=== PATIENT | male | born 1960 | race Caucasian/White ===

== ENCOUNTER 2020-08-06 15:04 | Emergency (ER) | payer SELFPAY ==
[~2020-08-06] VITALS: Ht 175.3 cm; Wt 102.1 kg
[2020-08-06 15:59] LABS: BASOPHILS ABSOLUTE AUTO 0.05 K/mm3 (0.00-0.23); BASOPHILS PERCENT AUTO 1 % (0-2); EOSINOPHILS ABSOLUTE AUTO 0.11 K/mm3 (0.00-0.68); EOSINOPHILS PERCENT AUTO 2 % (0-6); Hematocrit 46.7 % (37.0-53.0); Hemoglobin 15.5 g/dL (13.5-17.5); IMMATURE GRAN ABSOLUTE AUTO 0.01 K/mm3 (0.00-0.10); IMMATURE GRAN PERCENT AUTO 0 % (0-1); LYMPHOCYTES PERCENT AUTO 25 % (21-46); MONOCYTES ABSOLUTE AUTO 0.88 K/mm3 (0.16-1.47); MONOCYTES PERCENT AUTO 15 % (4-13); Mean Corpuscular HGB 29.5 pg (26.0-34.0); Mean Corpuscular HGB Conc 33.2 g/dL (31.5-36.5); Mean Corpuscular Volume 89 fL (80-100); NEUTROPHILS ABSOLUTE AUTO 3.26 K/mm3 (1.96-9.15); NEUTROPHILS PERCENT AUTO 57 % (41-73); Platelet Count 225 K/mm3 (150-400); RDW Coefficient Variation 12.7 % (11.7-14.2); RDW Standard Deviation 41.4 fL (35.1-46.3); Red Blood Cell Count 5.26 M/mm3 (4.30-5.90); White Blood Cell Count 5.71 K/mm3 (4.00-11.30)
[2020-08-06 16:27] LABS: Alanine Aminotransfer (ALT/SGP 55 U/L (12-78); Albumin, Blood 3.8 g/dL (3.4-5.0); Albumin/Globulin Ratio 1.1 (0.8-1.8); Alk Phos 76 U/L (50-136); Anion Gap 6 mmol/L (6-16); Aspartate Aminotrans (AST/SGOT 31 U/L (12-37); Blood Urea Nitrogen 12 mg/dL (8-24); Bun/Creatinine Ratio 16.4 (12.0-20.0); CO2, Blood 25 mmol/L (21-32); Calcium, Blood 9.3 mg/dL (8.5-10.1); Chloride, Blood 107 mmol/L (98-108); Creatinine, Blood 0.73 mg/dL (0.60-1.20); Globulin, Blood 3.6 g/dL (2.2-4.0); Glomerular Filtration Rate >60 (60-); Glucose, Blood 173 mg/dL (70-99); Potassium, Blood 4.1 mmol/L (3.5-5.5); Sodium, Blood 138 mmol/L (136-145); Total Protein, Blood 7.4 g/dL (6.4-8.2); Troponin I <0.015 ng/mL (0.000-0.040)
[2020-08-06] MEDS ORDERED: Percocet 5-3251 EACH PO (18:25)
== END 2020-08-06 18:42 | disposition home or self-care (01) ==
LOC: ER 15:04
PROVIDERS: Physician Assistant
DX: M54.2 Cervicalgia (principal); R20.2 Paresthesia of skin; Z87.39 Personal history of other diseases of the musculoskeletal system and connective tissue; Z88.2 Allergy status to sulfonamides; Z88.8 Allergy status to other drugs, medicaments and biological substances; Z88.5 Allergy status to narcotic agent
CPT/HCPCS: 80053; 83880; 84484; 85025; 93005; 93010; 96374; 99283-25; A9270; J1885

== ENCOUNTER → 2020-12-19 | Outpatient (CLI) | payer OTHER ==
[~2020-12-19] MED LIST: Percocet 5-3251 EACH PO
[2020-12-19 12:17] LABS: Appearance, Urine Clear (Clear); Bilirubin, Urine Neg (Neg); Blood, Urine Neg (Neg); Color, Urine Yellow (P-Yellow); Glucose Qualitative, Urine Neg (Neg); Ketones, Urine Neg (Neg); Leukocyte Esterase, Urine Neg (Neg); Nitrite, Urine Neg (Neg); Protein, Urine 1+ (Neg); Urobilinogen, Urine NORM (Normal)
== END | disposition home or self-care (01) ==
LOC: LAB SHORT 11:35 → LAB 11:35
PROVIDERS: Internal Medicine Rheumatology
DX: R80.9 Proteinuria, unspecified (principal)
CPT/HCPCS: 87086

== ENCOUNTER → 2021-05-31 | Outpatient (CLI) | payer OTHER ==
[2021-05-31 14:55] LABS: Creatinine Urine 52.4 mg/dL (27.00-270.00); Protein, Urine Quantitative 19.1 mg/dL (0.0-11.9)
== END | disposition home or self-care (01) ==
LOC: LAB SHORT 12:23 → LAB 12:23 → LAB FUT 05-15 16:35 → EDSTATUS 05-15 16:35
PROVIDERS: Nurse Practitioner Family
DX: M45.9 Ankylosing spondylitis of unspecified sites in spine (principal); E11.9 Type 2 diabetes mellitus without complications; F64.0 Transsexualism; R80.9 Proteinuria, unspecified; Z79.890 Hormone replacement therapy
CPT/HCPCS: 81050; 82570; 84156

== ENCOUNTER → 2021-06-28 | Outpatient (CLI) | payer OTHER ==
[~2021-06-28] MED LIST changes: +ALBU90OI INH; +AMLODIPINE BESY10 MG PO; +Amaryl2 MG PO; +BECL25NI; +Betamethasone D30 ML; +DULOXETINE HCL60 M1 PO; +IMITREX50 M2 PO; +Inderal60 MG PO; +LOSA50 PO; +METF500 PO; +MINOCYCLINE HC100 M2 PO; +MONT10T PO; +OXYB5 PO; +PRAVASTATIN SOD20 MG PO; +PROBIOTIC1 EA13 PO; +ROPI.25 PO; +VITAMIN D310 MC4 PO
== END | disposition home or self-care (01) ==
LOC: LAB SHORT 15:06
DX: A49.9 Bacterial infection, unspecified (principal)
CPT/HCPCS: 87070; 87205

== ENCOUNTER 2022-02-14 18:09 | Observation (INO) | payer OTHER ==
[~2022-02-14] VITALS: Ht 177.8 cm; Wt 90.6 kg
[2022-02-14 18:35] LABS: BASOPHILS ABSOLUTE AUTO 0.03 K/mm3 (0.00-0.23); BASOPHILS PERCENT AUTO 1 % (0-2); EOSINOPHILS PERCENT AUTO 0 % (0-6); Hematocrit 38.8 % (37.0-53.0); Hemoglobin 13.4 g/dL (13.5-17.5); IMMATURE GRAN ABSOLUTE AUTO 0.01 K/mm3 (0.00-0.10); IMMATURE GRAN PERCENT AUTO 0 % (0-1); LYMPHOCYTES ABSOLUTE AUTO 1.14 K/mm3 (0.84-5.20); LYMPHOCYTES PERCENT AUTO 46 % (21-46); MONOCYTES ABSOLUTE AUTO 0.46 K/mm3 (0.16-1.47); MONOCYTES PERCENT AUTO 19 % (4-13); Mean Corpuscular HGB 29.6 pg (26.0-34.0); Mean Corpuscular HGB Conc 34.5 g/dL (31.5-36.5); Mean Corpuscular Volume 86 fL (80-100); Mean Platelet Volume 10.3 fL (9.1-12.4); NEUTROPHILS ABSOLUTE AUTO 0.85 K/mm3 (1.96-9.15); NEUTROPHILS PERCENT AUTO 34 % (41-73); Platelet Count 169 K/mm3 (150-400); RDW Coefficient Variation 13.3 % (11.7-14.2); RDW Standard Deviation 41.3 fL (35.1-46.3); Red Blood Cell Count 4.52 M/mm3 (4.30-5.90); White Blood Cell Count 2.49 K/mm3 (4.00-11.30)
[2022-02-14 19:11] LABS: Albumin, Blood 3.5 g/dL (3.4-5.0); Albumin/Globulin Ratio 1.1 (0.8-1.8); Bilirubin, Total 0.5 mg/dL (0.1-1.0); Bun/Creatinine Ratio 20.6 (12.0-20.0); Calcium, Blood 7.9 mg/dL (8.5-10.1); Creatinine, Blood 0.63 mg/dL (0.60-1.20); Globulin, Blood 3.3 g/dL (2.2-4.0); Potassium, Blood 3.1 mmol/L (3.5-5.5); Thyroid Stimulating Hormone 4.9 uIU/mL (0.360-4.800); Total Protein, Blood 6.8 g/dL (6.4-8.2)
[2022-02-14] MEDS ORDERED: TESTOSTERONE75 G1 TD (20:05)
[2022-02-14 20:23] LABS: Source, Urine Foley catheter
[2022-02-14 20:36] LABS: Bilirubin, Urine Neg (Neg); Blood, Urine Neg (Neg); Glucose Qualitative, Urine Neg (Neg); Ketones, Urine 3+ (Neg); Leukocyte Esterase, Urine Neg (Neg); Nitrite, Urine Neg (Neg); Protein, Urine 1+ (Neg); Specific Gravity, Urine 1.005 (1.003-1.022); Urobilinogen, Urine NORM (Normal); pH, Urine 6.5 (5.0-8.0)
[2022-02-14 21:04] LABS: Appearance, Urine Clear (Clear); Color, Urine Pale Yellow (P-Yellow)
[2022-02-14 22:33] LABS: U Amphetamine Screen Not Detected; U Barbituate Screen Not Detected; U Benzodiazapine Screen Not Detected; U Buprenorphine Screen Not Detected; U Cannabinoids Screen Not Detected; U Cocaine Screen Not Detected; U Methadone Screen Not Detected; U Methamphetamine Screen Not Detected; U Opiates Screen Not Detected; U Oxycodone Screen Not Detected; U Phencyclidine Screen Not Detected; U Propoxyphene Screen Not Detected
[2022-02-14 23:05] LABS: SARS-Cov-2 (COVID-19) PCR, MMC POSITIVE (NEGATIVE)
[2022-02-14] MEDS ORDERED: METTREX2.5 PO (23:16)
[2022-02-14] MEDS ORDERED: LORA.5 PO (23:17)
[2022-02-14] MEDS ORDERED: OMEP20ER PO (23:18)
[2022-02-14] MEDS ORDERED: FOLI1 PO (23:18)
[2022-02-14] MEDS ORDERED: HYDPAM50 PO (23:19)
[2022-02-14] MEDS ORDERED: [UNRECOGNIZED DRUG - OTHER] (23:22)
[2022-02-14] MEDS ORDERED: MAGNESIUM OXID500 MG PO (23:23)
[2022-02-14] MEDS ORDERED: ELDERBERRY PO (23:25)
[2022-02-14] MEDS ORDERED: ZINC PO (23:25)
[2022-02-14] MEDS ORDERED: ASCORBIC ACID PO (23:25)
[2022-02-14] MEDS ORDERED: CALCIUM MAGNES1 EAC1 PO (23:26)
[2022-02-15 06:27] LABS: BASOPHILS ABSOLUTE AUTO 0.01 K/mm3 (0.00-0.23); BASOPHILS PERCENT AUTO 0 % (0-2); EOSINOPHILS PERCENT AUTO 0 % (0-6); Hematocrit 38.2 % (37.0-53.0); Hemoglobin 12.9 g/dL (13.5-17.5); IMMATURE GRAN ABSOLUTE AUTO 0.01 K/mm3 (0.00-0.10); IMMATURE GRAN PERCENT AUTO 0 % (0-1); LYMPHOCYTES ABSOLUTE AUTO 1.32 K/mm3 (0.84-5.20); LYMPHOCYTES PERCENT AUTO 35 % (21-46); MONOCYTES ABSOLUTE AUTO 0.46 K/mm3 (0.16-1.47); MONOCYTES PERCENT AUTO 12 % (4-13); Mean Corpuscular HGB 29.6 pg (26.0-34.0); Mean Corpuscular HGB Conc 33.8 g/dL (31.5-36.5); Mean Corpuscular Volume 88 fL (80-100); Mean Platelet Volume 10.4 fL (9.1-12.4); NEUTROPHILS ABSOLUTE AUTO 1.98 K/mm3 (1.96-9.15); NEUTROPHILS PERCENT AUTO 52 % (41-73); Platelet Count 172 K/mm3 (150-400); RDW Coefficient Variation 13.4 % (11.7-14.2); Red Blood Cell Count 4.36 M/mm3 (4.30-5.90); White Blood Cell Count 3.78 K/mm3 (4.00-11.30)
--- NOTE | 2022-02-15 06:38 | NUR ---
ADMITTED PT FROM ED @ 2220. PT ORIENTED TO UNIT, ROOM, AND CALL LIGHT. VITALS OBTAINED AND TELEMETRY MONITORING SET UP. MED REQ COMPLETED. PT ON RA, VSS - CARDIZEM GTT TIRATED OFF OVERNIGHT AFTER CONVERSION TO SR. NO COMPLAINTS OF PAIN. PT REPORTS RESTLESS LEGS. SPOKE W. DR. KNIGHT AND OK TO GIVE REQUIP AM DOSE EARLY. PT REPORTED RELIEF. WILL CONTINUE TO MONITOR AND PASS ON TO DAY RN
[2022-02-15 06:49] LABS: Albumin/Globulin Ratio 0.9 (0.8-1.8); Bilirubin, Total 0.4 mg/dL (0.1-1.0); Bun/Creatinine Ratio 14.4 (12.0-20.0); Calcium, Blood 7.5 mg/dL (8.5-10.1); Creatinine, Blood 0.69 mg/dL (0.60-1.20); Globulin, Blood 3.2 g/dL (2.2-4.0); Potassium, Blood 3.5 mmol/L (3.5-5.5); Total Protein, Blood 6.2 g/dL (6.4-8.2)
--- NOTE | 2022-02-15 13:32 | NUR ---
pt arrived to 341 via wheelchair with his belongings. a/ox3, pleasant and coopertive with care, only complaint is a bit of lightheadedness when standing, lungs are very dim t/o, resp even and unlabored, no cough noted, but reports occ productive cough of yellow phlem, on r/a, hrr, no edema noted, ppp+2, cap refill <3sec, vs stable, afebrile, iv site is clear and patent, btx4, abd flat soft nontender, voids with out diff, skin c/w/d, macarol ann, patel, oriented to room layout and call system, call light in reach. instructed to call for assist to get oob.
--- NOTE | 2022-02-15 19:22 | NUR ---
pt states he's feeling better, no acute changes, watching tv. call light in reach.
--- NOTE | 2022-02-16 04:45 | NUR ---
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 PT IS FULL CODE. HE IS COVID POSITIVE. PT IS A 1PA WITH FWW BUT AGREED TO USE THE BSC DURING THE NIGHT DUE TO INABILITY TO HOLD HIS URINE. PT IS SATURATING WELL ON RA. HE DID HAVE COMPLAINTS OF "FEELING LIKE I'M ON A BOAT WHEN I WALK AROUND" THAT RESOLVED WITH ROPINOROLE AND SLEEP THROUGHOUT THE NIGHT. HE IS MORE ENERGETIC THIS MORNING, SAYING THAT HE SHOULD BE UP AND WALKING AROUND, PACING IN THE ROOM. PT IS CONCERNED ABOUT HIS ROOMMATES AND IS REQUESTING HELP FINDING A NEW PLACE TO STAY.
--- NOTE | 2022-02-16 16:53 | NUR ---
SHIFT SUMMARY PATIENT IS ALERT AND ORIENTED, PLEASANT AND COOPERATIVE WITH CARE. PATIENT HAD MECLIZINE ORDERED TODAY. NO EVENTS ON TELE. PATIENT WORKED WITH PHYSICAL THERAPY TODAY. PATIENT MAY NEED TO FOLLOW UP WITH VESTIBULAR THERAPY PER MELY FROM PHYSICAL THERAPY. THE PATIENT HAS VOICED NEEDS FOR MORE ASSISTANCE WITH OUT OF HOME ACTIVITIES. PATIENT HAS BEEN UP TO THE BEDSIDE COMMODE. NO ACUTE CHANGES THIS SHIFT. CALL LIGHT WITHIN REACH. BED IN LOWEST POSITION
--- NOTE | 2022-02-17 05:24 | NUR ---
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 PT IS FULL CODE. HE IS COVID POSITIVE. PT SLEPT WELL THROUGHOUT THE SHIFT AFTER TAKING ROPINEROLE. NO COMPLAINTS OF SHORTNESS OF BREATH. NO PAIN. ALERT AND ORIENTED X4. PLEASANT AND COOPERATIVE. PT IS INDEPENDENT TO BSC. NO DIZZINESS.
[2022-02-17] MEDS ORDERED: MECL12.5 PO (12:29)
[2022-02-17] MEDS ORDERED: METO25 PO (12:30)
[2022-02-17] MEDS ORDERED: XARELTO20 MG PO (12:31)
--- NOTE | 2022-02-17 14:31 | NUR ---
RN NOTE/DISCHARGE MR ALEJANDRA IS ALERT AND ORIENTATED X 4. DENIES ANY C/O PAIN TODAY. NO SOB ON ROOM AIR. UP TO BATHROOM AND SHOWER WITH 1 PERSON ASSIST, THEN UP TO BATHROOM INDEPENDENTLY. PIV REMOVED. TELEMETRY REMOVED. GIVEN WRITTEN AND VERBAL DISCHARGE INSTRUCTIONS. PT VERBALISED UNDERSTANDING OF DISCHARGE INSTRUCTIONS AND QUESTIONS ANSWERED. AWAITING RIDE HOME.
--- NOTE | 2022-02-17 16:02 | NUR ---
PT ESCORTED VIA WHEELCHAIR FOR DISCHARGE AT 1510HRS TO HIS RIDE.
== END 2022-02-17 15:15 | disposition home health service (06) ==
LOC: ER 18:09 → PCU 18:10 → ER 22:17 → PCU 22:20 → MEDS 02-15 13:01
PROVIDERS: Emergency Medicine; Student in an Organized Health Care Education/Training Program; ADMIT Internal Medicine
DX: I48.91 Unspecified atrial fibrillation (principal); U07.1 COVID-19; I10 Essential (primary) hypertension; I48.92 Unspecified atrial flutter; E11.9 Type 2 diabetes mellitus without complications; J18.9 Pneumonia, unspecified organism; J44.9 Chronic obstructive pulmonary disease, unspecified; I25.10 Atherosclerotic heart disease of native coronary artery without angina pectoris; I25.2 Old myocardial infarction; E05.90 Thyrotoxicosis, unspecified without thyrotoxic crisis or storm; I49.5 Sick sinus syndrome; Z79.01 Long term (current) use of anticoagulants; Z88.2 Allergy status to sulfonamides; Z88.5 Allergy status to narcotic agent; Z87.891 Personal history of nicotine dependence; Z88.8 Allergy status to other drugs, medicaments and biological substances; Z79.84 Long term (current) use of oral hypoglycemic drugs
CPT/HCPCS: 36415; 51702; 71045; 80053; 82947; 83036; 83605; 83880; 84145; 84439; 84443; 84484; 85025; 93005; 93010; 93306; 94760; 96365; 96375; 96376; 97110; 97112; 97116; 97162; 99285-25; A9270; J0696; J2405; J3475; J7030; U0004

== ENCOUNTER 2022-03-05 08:05 | Day surgery (SDC) | payer OTHER ==
[~2022-03-05] VITALS: Wt 93.7 kg
[~2022-03-05 08:05] MED LIST changes: +ASCORBIC ACID PO; +CALCIUM MAGNES1 EAC1 PO; +ELDERBERRY PO; +FOLI1 PO; +HYDPAM50 PO; +LORA.5 PO; +MAGNESIUM OXID500 MG PO; +MECL12.5 PO; +METO25 PO; +METTREX2.5 PO; +OMEP20ER PO; +TESTOSTERONE75 G1 TD; +WARF5 PO; +XARELTO20 MG PO; +ZINC PO; +[UNRECOGNIZED DRUG - OTHER]
[2022-03-05] MEDS ORDERED: WARF5 PO (09:13)
[2022-03-05 10:15] LABS: CHOL/HDL RATIO 4.9; Cholesterol 161 mg/dL (50-200); HDL Cholesterol 33 mg/dL (>39); LDL/HDL RATIO 2.4; Low Density Lipoprotein Chol 78 mg/dL (0-110); Triglycerides 249 mg/dL (30-160); Very Low Density Lipoprot Chol 50 mg/dL (6-32)
--- NOTE | 2022-03-05 10:56 | NUR ---
LIPID PANEL RESULTS FROM TODAY FAXED TO DR. WOOD'S OFFICE.
== END 2022-03-05 10:47 | disposition home or self-care (01) ==
LOC: ATC 08:05
PROVIDERS: Internal Medicine Rheumatology
DX: M05.9 Rheumatoid arthritis with rheumatoid factor, unspecified (principal)
CPT/HCPCS: 80061; J3262

== ENCOUNTER 2022-04-16 00:41 | Day surgery (SDC) | payer OTHER | END 2022-04-16 15:39 | disposition home or self-care (01) | LOC: ATC 00:41 | DX: M05.79 Rheumatoid arthritis with rheumatoid factor of multiple sites without organ or systems involvement (principal); Z88.5 Allergy status to narcotic agent; Z88.2 Allergy status to sulfonamides; L40.50 Arthropathic psoriasis, unspecified; E11.9 Type 2 diabetes mellitus without complications; E78.00 Pure hypercholesterolemia, unspecified; J45.909 Unspecified asthma, uncomplicated | CPT/HCPCS: 96365; J3262 ==

== ENCOUNTER → 2022-04-28 | Outpatient (CLI) | payer OTHER ==
[2022-04-28 13:05] LABS: BASOPHILS ABSOLUTE AUTO 0.08 K/mm3 (0.00-0.23); BASOPHILS PERCENT AUTO 1 % (0-2); EOSINOPHILS ABSOLUTE AUTO 0.17 K/mm3 (0.00-0.68); EOSINOPHILS PERCENT AUTO 2 % (0-6); Hematocrit 47.6 % (37.0-53.0); IMMATURE GRAN ABSOLUTE AUTO 0.06 K/mm3 (0.00-0.10); IMMATURE GRAN PERCENT AUTO 1 % (0-1); LYMPHOCYTES ABSOLUTE AUTO 1.52 K/mm3 (0.84-5.20); LYMPHOCYTES PERCENT AUTO 17 % (21-46); MONOCYTES ABSOLUTE AUTO 1.17 K/mm3 (0.16-1.47); MONOCYTES PERCENT AUTO 13 % (4-13); Mean Corpuscular HGB 30.9 pg (26.0-34.0); Mean Corpuscular HGB Conc 33.6 g/dL (31.5-36.5); Mean Corpuscular Volume 92 fL (80-100); Mean Platelet Volume 10.2 fL (9.1-12.4); NEUTROPHILS ABSOLUTE AUTO 5.74 K/mm3 (1.96-9.15); NEUTROPHILS PERCENT AUTO 66 % (41-73); Platelet Count 276 K/mm3 (150-400); RDW Coefficient Variation 15.8 % (11.7-14.2); Red Blood Cell Count 5.18 M/mm3 (4.30-5.90); White Blood Cell Count 8.74 K/mm3 (4.00-11.30)
[2022-04-28 13:13] LABS: Albumin, Blood 4.2 g/dL (3.4-5.0); Albumin/Globulin Ratio 1.3 (0.8-1.8); Bilirubin, Total 0.9 mg/dL (0.1-1.0); Bun/Creatinine Ratio 34.7 (12.0-20.0); Calcium, Blood 8.6 mg/dL (8.5-10.1); Creatinine, Blood 0.75 mg/dL (0.60-1.20); Globulin, Blood 3.3 g/dL (2.2-4.0); Potassium, Blood 4.2 mmol/L (3.5-5.5); Total Protein, Blood 7.5 g/dL (6.4-8.2)
[2022-04-28 13:54] LABS: International Normalized Ratio 1.77; Prothrombin Time Results 17.9 Sec (9.7-11.5)
== END | disposition home or self-care (01) ==
LOC: LAB 12:55 → LAB SHORT 12:55
PROVIDERS: General Practice
DX: Z79.01 Long term (current) use of anticoagulants (principal); Z51.81 Encounter for therapeutic drug level monitoring; R06.00 Dyspnea, unspecified
CPT/HCPCS: 80053; 82550; 84484; 85025; 85610

== ENCOUNTER 2022-05-28 22:13 | Emergency (ER) | payer OTHER ==
[~2022-05-28] VITALS: Ht 172.7 cm; Wt 77.1 kg
[~2022-05-28 22:13] MED LIST changes: +ACTEMRA IV
[2022-05-31] MEDS ORDERED: GUAI600T33 PO (21:59)
[2022-05-31] MEDS ORDERED: PRED20 PO (21:59)
== END 2022-05-28 22:35 | disposition home or self-care (01) ==
LOC: ER 22:13
DX: J06.9 Acute upper respiratory infection, unspecified (principal); Z79.84 Long term (current) use of oral hypoglycemic drugs; Z79.01 Long term (current) use of anticoagulants; Z79.899 Other long term (current) drug therapy
CPT/HCPCS: 99282

== ENCOUNTER 2022-06-15 02:09 | Day surgery (SDC) | payer OTHER ==
[~2022-06-15 02:09] MED LIST changes: +GUAI600T33 PO; +PRED20 PO
== END 2022-06-15 12:10 | disposition home or self-care (01) ==
LOC: ATC 02:09
DX: M05.79 Rheumatoid arthritis with rheumatoid factor of multiple sites without organ or systems involvement (principal); E11.9 Type 2 diabetes mellitus without complications; E78.00 Pure hypercholesterolemia, unspecified; J45.909 Unspecified asthma, uncomplicated; Z88.5 Allergy status to narcotic agent; Z88.2 Allergy status to sulfonamides
CPT/HCPCS: 96365; J3262

== ENCOUNTER 2022-08-03 00:14 | Day surgery (SDC) | payer OTHER | END 2022-08-03 16:37 | disposition home or self-care (01) | LOC: ATC 00:14 | DX: M05.79 Rheumatoid arthritis with rheumatoid factor of multiple sites without organ or systems involvement (principal); Z88.5 Allergy status to narcotic agent | CPT/HCPCS: 96365; J3262 ==

== ENCOUNTER 2022-08-08 17:57 | Observation (INO) | payer OTHER ==
[~2022-08-08] VITALS: Ht 177.8 cm; Wt 95.6 kg
[2022-08-08 19:06] LABS: BASOPHILS ABSOLUTE AUTO 0.03 K/mm3 (0.00-0.23); BASOPHILS PERCENT AUTO 1 % (0-2); EOSINOPHILS ABSOLUTE AUTO 0.05 K/mm3 (0.00-0.68); EOSINOPHILS PERCENT AUTO 1 % (0-6); Hematocrit 46.1 % (37.0-53.0); Hemoglobin 16.3 g/dL (13.5-17.5); IMMATURE GRAN ABSOLUTE AUTO 0.02 K/mm3 (0.00-0.10); IMMATURE GRAN PERCENT AUTO 0 % (0-1); LYMPHOCYTES ABSOLUTE AUTO 1.26 K/mm3 (0.84-5.20); LYMPHOCYTES PERCENT AUTO 19 % (21-46); MONOCYTES ABSOLUTE AUTO 0.64 K/mm3 (0.16-1.47); MONOCYTES PERCENT AUTO 10 % (4-13); Mean Corpuscular HGB 31.5 pg (26.0-34.0); Mean Corpuscular HGB Conc 35.4 g/dL (31.5-36.5); Mean Corpuscular Volume 89 fL (80-100); Mean Platelet Volume 9.9 fL (9.1-12.4); NEUTROPHILS PERCENT AUTO 69 % (41-73); Platelet Count 284 K/mm3 (150-400); RDW Coefficient Variation 13.7 % (11.7-14.2); RDW Standard Deviation 44.7 fL (35.1-46.3); Red Blood Cell Count 5.18 M/mm3 (4.30-5.90)
[2022-08-08 19:13] LABS: International Normalized Ratio 2.09; Prothrombin Time Results 20.9 Sec (9.7-11.5)
[2022-08-08 19:31] LABS: Magnesium, Blood 1.8 mg/dL (1.6-2.4); Thyroid Stimulating Hormone 2.99 uIU/mL (0.360-4.800)
[2022-08-08 19:32] LABS: Albumin, Blood 3.9 g/dL (3.4-5.0); Albumin/Globulin Ratio 1.2 (0.8-1.8); Bun/Creatinine Ratio 24.5 (12.0-20.0); Calcium, Blood 9.3 mg/dL (8.5-10.1); Creatinine, Blood 0.65 mg/dL (0.60-1.20); Globulin, Blood 3.3 g/dL (2.2-4.0); Potassium, Blood 3.8 mmol/L (3.5-5.5); Total Protein, Blood 7.2 g/dL (6.4-8.2)
[2022-08-08 19:54] LABS: Influenza A, PCR NEGATIVE (NEGATIVE); Influenza B, PCR NEGATIVE (NEGATIVE); Resp Syncytial Virus, PCR NEGATIVE (NEGATIVE); SARS-Cov-2 (COVID-19) PCR, MMC NEGATIVE (NEGATIVE)
--- NOTE | 2022-08-08 23:41 | NUR ---
TRANSFER NOTE THIS RN RECEIVED REPORT VIA PHONE FROM ED RN JANN. PATIENT TRANSFERRED TO PCU 4. PATIENT WITH DILTIAZEM GTT AT 20MG/HR AT TIME OF ADMISSION. THIS RN TITRATED DOWN DUE AFIB WITH HR IN THE 80'S. CARDIZEM IS NOW ON STANDBY. AFIB RHYTHM ON THE MONITOR WITH HR 70-80'S AT THIS TIME. BP STABLE. PATIENT DENIES CHEST PAIN/PRESSURE/PALPITATIONS. AFEBRILE. PATIENT ABLE TO MAKE NEEDS KNOWN. ALERT AND ORIENTED FULLY BUT STATES HE HAS BEEN FORGETFUL SINCE HAVING COVID. PATIENT ABLE TO MOVE SELF IN BED BUT STATES HE IS WEAK; THIS RN NOTES WEAKNESS WITH MOVEMENT WELL. CALL LIGHT WITHIN REACH. BED IN LOWEST POSITION.
[2022-08-09 04:54] LABS: BASOPHILS ABSOLUTE AUTO 0.03 K/mm3 (0.00-0.23); BASOPHILS PERCENT AUTO 1 % (0-2); EOSINOPHILS ABSOLUTE AUTO 0.09 K/mm3 (0.00-0.68); EOSINOPHILS PERCENT AUTO 1 % (0-6); Hematocrit 44.2 % (37.0-53.0); Hemoglobin 15.5 g/dL (13.5-17.5); IMMATURE GRAN ABSOLUTE AUTO 0.01 K/mm3 (0.00-0.10); IMMATURE GRAN PERCENT AUTO 0 % (0-1); LYMPHOCYTES ABSOLUTE AUTO 1.86 K/mm3 (0.84-5.20); LYMPHOCYTES PERCENT AUTO 28 % (21-46); MONOCYTES ABSOLUTE AUTO 0.74 K/mm3 (0.16-1.47); MONOCYTES PERCENT AUTO 11 % (4-13); Mean Corpuscular HGB 31.6 pg (26.0-34.0); Mean Corpuscular HGB Conc 35.1 g/dL (31.5-36.5); Mean Corpuscular Volume 90 fL (80-100); Mean Platelet Volume 10.4 fL (9.1-12.4); NEUTROPHILS ABSOLUTE AUTO 3.86 K/mm3 (1.96-9.15); NEUTROPHILS PERCENT AUTO 59 % (41-73); Platelet Count 251 K/mm3 (150-400); RDW Standard Deviation 46.4 fL (35.1-46.3); Red Blood Cell Count 4.91 M/mm3 (4.30-5.90); White Blood Cell Count 6.59 K/mm3 (4.00-11.30)
[2022-08-09 05:08] LABS: International Normalized Ratio 1.92; Prothrombin Time Results 19.3 Sec (9.7-11.5)
--- NOTE | 2022-08-09 05:13 | NUR ---
SHIFT SUMMARY NO ACUTE EVENTS OVERNIGHT. DILTIAZEM GTT PUT ON STANDBY AT 2345. PATIENT IS STILL IN AFIB BUT HR IS 70-80S. BP STABLE. AFEBRILE. MAG REPLACED PER MD ORDER. POTASSIUM REPLACEMENT INFUSING. PATIENT WITH PUREWICK IN PLACE DUE TO OVERACTIVE BLADDER. PATIENT IS TRANSGENDER FEMALE TO MALE; WITH PRONOUN PREFERENCE OF HE/HIS. PATIENT HAD BREASTS REMOVED BUT NO OTHER GENDER REASSIGNMENT SURGERY DONE. PATIENT CALM AND COOPERATIVE WITH CARE. ALERT AND ORIENTED FULLY. CALLING APPROPRIATELY. BED IN LOWEST POSITION AND CALL LIGHT WITHIN REACH. THIS RN WILL CONTINUE TO MONITOR AND PROVIDE INTERVENTIONS NEEDED/ORDERED UNTIL SHIFT CHANGE AT 0700.
[2022-08-09 05:14] LABS: Albumin, Blood 3.3 g/dL (3.4-5.0); Albumin/Globulin Ratio 1.1 (0.8-1.8); Bun/Creatinine Ratio 18.5 (12.0-20.0); Calcium, Blood 8.3 mg/dL (8.5-10.1); Creatinine, Blood 0.65 mg/dL (0.60-1.20); Free Thyroxine 0.83 ng/dL (0.70-1.60); Globulin, Blood 2.9 g/dL (2.2-4.0); Potassium, Blood 3.8 mmol/L (3.5-5.5); Total Protein, Blood 6.2 g/dL (6.4-8.2)
[2022-08-09 09:11] LABS: International Normalized Ratio 1.83; Prothrombin Time Results 18.5 Sec (9.7-11.5)
--- NOTE | 2022-08-09 14:11 | NUR ---
DISCHARGE NOTE NO ACUTE EVENTS THIS HALF OF SHIFT, VSS. PT ABLE TO AMBULATE IN ROOM WITH WALKER, WORKED WITH PT. HR REMAINS STABLE 60-80S NSR. PT PROVIDED DISCHARGE INFO REGARDING FOLLOW UP PLANS, MEDICATION INFORMATION, AND REASONS TO RETURN TO THE HOSPITAL. PT ENDORSED UNDERSTANDING. PT'S FRIEND CAME TO BEDSIDE, WILL PROVIDE RIDE IN PRIVATE VEHICLE.
== END 2022-08-09 14:13 | disposition home or self-care (01) ==
LOC: ER 17:57 → PCU 20:26 → ER 20:26 → PCU 20:26
PROVIDERS: Hospitalist; Student in an Organized Health Care Education/Training Program; ADMIT Internal Medicine
DX: I48.0 Paroxysmal atrial fibrillation (principal); Z79.01 Long term (current) use of anticoagulants; E11.9 Type 2 diabetes mellitus without complications; I10 Essential (primary) hypertension; M45.9 Ankylosing spondylitis of unspecified sites in spine; R07.9 Chest pain, unspecified; Z79.84 Long term (current) use of oral hypoglycemic drugs; Z88.5 Allergy status to narcotic agent; Z88.2 Allergy status to sulfonamides; Z88.8 Allergy status to other drugs, medicaments and biological substances; E87.6 Hypokalemia; E83.42 Hypomagnesemia; Z20.822 Contact with and (suspected) exposure to COVID-19
CPT/HCPCS: 0241U; 36415; 71045; 80053; 82550; 82947; 83690; 83735; 83880; 84439; 84443; 84484; 85025; 85610; 93005; 93010; 94640; 94664; 94760; 97161; A9270; J3475; J3480; J7030; J7050

== ENCOUNTER 2022-08-31 01:03 | Day surgery (SDC) | payer OTHER ==
[~2022-08-31] VITALS: Wt 95.1 kg
== END 2022-08-31 11:32 | disposition home or self-care (01) ==
LOC: ATC 01:03
DX: M05.79 Rheumatoid arthritis with rheumatoid factor of multiple sites without organ or systems involvement (principal); E78.00 Pure hypercholesterolemia, unspecified; E11.9 Type 2 diabetes mellitus without complications; F32.A Depression, unspecified
CPT/HCPCS: 96365; J3262

== ENCOUNTER 2022-10-01 02:01 | Day surgery (SDC) | payer OTHER ==
[~2022-10-01] VITALS: Wt 96.1 kg
[2022-10-01] MEDS ORDERED: AMLO5 (15:56)
[2022-10-01] MEDS ORDERED: LOSA25 PO (15:56)
== END 2022-10-01 15:06 | disposition home or self-care (01) ==
LOC: ATC 02:01
DX: M05.79 Rheumatoid arthritis with rheumatoid factor of multiple sites without organ or systems involvement (principal); F32.9 Major depressive disorder, single episode, unspecified; E11.9 Type 2 diabetes mellitus without complications; E78.00 Pure hypercholesterolemia, unspecified; J45.909 Unspecified asthma, uncomplicated; F64.0 Transsexualism; Z88.2 Allergy status to sulfonamides; Z79.84 Long term (current) use of oral hypoglycemic drugs
CPT/HCPCS: J3262

== ENCOUNTER → 2022-11-16 | Outpatient (CLI) | payer OTHER ==
[~2022-11-16] MED LIST changes: +AMLO5; +LOSA25 PO
[2022-11-16 19:17] LABS: Anion Gap 7 mmol/L (6-16); Blood Urea Nitrogen 20 mg/dL (8-24); Bun/Creatinine Ratio 29.4 (12.0-20.0); CHOL/HDL RATIO 5.5; CO2, Blood 21 mmol/L (21-32); Calcium, Blood 9.2 mg/dL (8.5-10.1); Chloride, Blood 106 mmol/L (98-108); Cholesterol 182 mg/dL (50-200); Creatinine, Blood 0.68 mg/dL (0.60-1.20); Glomerular Filtration Rate 105 (60-); Glucose, Blood 80 mg/dL (70-99); HDL Cholesterol 33 mg/dL (>39); LDL/HDL RATIO 3.4; Low Density Lipoprotein Chol 111 mg/dL (0-110); Potassium, Blood 3.4 mmol/L (3.5-5.5); Sodium, Blood 134 mmol/L (136-145); Triglycerides 192 mg/dL (30-160); Very Low Density Lipoprot Chol 38 mg/dL (6-32)
== END | disposition home or self-care (01) ==
LOC: LAB SHORT 16:11 → LAB 16:11
PROVIDERS: Nurse Practitioner Family
DX: E78.2 Mixed hyperlipidemia (principal); E11.69 Type 2 diabetes mellitus with other specified complication; M79.10 Myalgia, unspecified site
CPT/HCPCS: 80048; 80061

== ENCOUNTER 2022-12-22 01:32 | Emergency (ER) | payer OTHER ==
[~2022-12-22] VITALS: Ht 177.8 cm; Wt 97.5 kg
[2022-12-22] MEDS ORDERED: CEPH500 PO (01:55)
[2022-12-22] MEDS ORDERED: PRAZOSIN HCL1 M2 PO (01:57)
[2022-12-22] MEDS ORDERED: CITALOPRAM HBR20 M9 PO (01:58)
[2022-12-22 02:18] LABS: BASOPHILS ABSOLUTE AUTO 0.06 K/mm3 (0.00-0.23); BASOPHILS PERCENT AUTO 1 % (0-2); EOSINOPHILS PERCENT AUTO 2 % (0-6); Hematocrit 45.7 % (37.0-53.0); Hemoglobin 16.6 g/dL (13.5-17.5); IMMATURE GRAN ABSOLUTE AUTO 0.05 K/mm3 (0.00-0.10); IMMATURE GRAN PERCENT AUTO 1 % (0-1); LYMPHOCYTES ABSOLUTE AUTO 1.54 K/mm3 (0.84-5.20); LYMPHOCYTES PERCENT AUTO 23 % (21-46); MONOCYTES ABSOLUTE AUTO 0.66 K/mm3 (0.16-1.47); MONOCYTES PERCENT AUTO 10 % (4-13); Mean Corpuscular HGB 32.7 pg (26.0-34.0); Mean Corpuscular HGB Conc 36.3 g/dL (31.5-36.5); Mean Corpuscular Volume 90 fL (80-100); NEUTROPHILS PERCENT AUTO 64 % (41-73); RDW Coefficient Variation 13.2 % (11.7-14.2); RDW Standard Deviation 42.8 fL (35.1-46.3); Red Blood Cell Count 5.07 M/mm3 (4.30-5.90); White Blood Cell Count 6.61 K/mm3 (4.00-11.30)
[2022-12-22 02:19] LABS: Mean Platelet Volume 11.7 fL (9.1-12.4); Platelet Count 162 K/mm3 (150-400)
[2022-12-22 02:21] LABS: Bun/Creatinine Ratio 25.5 (12.0-20.0); Calcium, Blood 9.1 mg/dL (8.5-10.1); Creatinine, Blood 0.59 mg/dL (0.60-1.20); Magnesium, Blood 1.6 mg/dL (1.6-2.4); Potassium, Blood 3.4 mmol/L (3.5-5.5)
[2022-12-22 02:25] LABS: International Normalized Ratio 2.46; Prothrombin Time Results 24.5 Sec (9.7-11.5)
== END 2022-12-22 07:20 | disposition home or self-care (01) ==
LOC: ER 01:32
PROVIDERS: Student in an Organized Health Care Education/Training Program
DX: I48.0 Paroxysmal atrial fibrillation (principal); E87.6 Hypokalemia; I10 Essential (primary) hypertension; J45.909 Unspecified asthma, uncomplicated; E11.9 Type 2 diabetes mellitus without complications; Z88.2 Allergy status to sulfonamides; Z88.8 Allergy status to other drugs, medicaments and biological substances; Z88.5 Allergy status to narcotic agent; Z79.899 Other long term (current) drug therapy; Z79.84 Long term (current) use of oral hypoglycemic drugs; Z79.01 Long term (current) use of anticoagulants
CPT/HCPCS: 71046; 80048; 83735; 85025; 85610; 93005; 93010; A9270; J3475; J3480; J7030

== ENCOUNTER 2022-12-29 15:29 | Emergency (ER) | payer OTHER ==
[~2022-12-29] VITALS: Ht 180.3 cm; Wt 95.2 kg
[~2022-12-29 15:29] MED LIST changes: +CEPH500 PO; +CITALOPRAM HBR20 M9 PO; +PRAZOSIN HCL1 M2 PO
[2022-12-29] MEDS ORDERED: CITALOPRAM HBR10 MG PO (15:44)
[2022-12-29 15:49] LABS: BASOPHILS ABSOLUTE AUTO 0.03 K/mm3 (0.00-0.23); BASOPHILS PERCENT AUTO 0 % (0-2); EOSINOPHILS ABSOLUTE AUTO 0.04 K/mm3 (0.00-0.68); EOSINOPHILS PERCENT AUTO 0 % (0-6); Hematocrit 46.6 % (37.0-53.0); Hemoglobin 16.5 g/dL (13.5-17.5); IMMATURE GRAN ABSOLUTE AUTO 0.03 K/mm3 (0.00-0.10); IMMATURE GRAN PERCENT AUTO 0 % (0-1); LYMPHOCYTES PERCENT AUTO 13 % (21-46); MONOCYTES PERCENT AUTO 10 % (4-13); Mean Corpuscular HGB 31.8 pg (26.0-34.0); Mean Corpuscular HGB Conc 35.4 g/dL (31.5-36.5); Mean Corpuscular Volume 90 fL (80-100); Mean Platelet Volume 9.8 fL (9.1-12.4); NEUTROPHILS ABSOLUTE AUTO 7.32 K/mm3 (1.96-9.15); NEUTROPHILS PERCENT AUTO 77 % (41-73); Platelet Count 245 K/mm3 (150-400); RDW Standard Deviation 42.6 fL (35.1-46.3); Red Blood Cell Count 5.19 M/mm3 (4.30-5.90); White Blood Cell Count 9.52 K/mm3 (4.00-11.30)
[2022-12-29 16:03] LABS: Albumin, Blood 4.2 g/dL (3.4-5.0); Albumin/Globulin Ratio 1.3 (0.8-1.8); Bilirubin, Total 1.2 mg/dL (0.1-1.0); Bun/Creatinine Ratio 18.6 (12.0-20.0); Calcium, Blood 9.1 mg/dL (8.5-10.1); Creatinine, Blood 0.7 mg/dL (0.60-1.20); Globulin, Blood 3.3 g/dL (2.2-4.0); Potassium, Blood 3.1 mmol/L (3.5-5.5); Total Protein, Blood 7.5 g/dL (6.4-8.2)
[2022-12-29 16:34] LABS: Source, Urine Clean Catch
[2022-12-29 16:53] LABS: Appearance, Urine Clear (Clear); Bilirubin, Urine Neg (Neg); Blood, Urine Neg (Neg); Glucose Qualitative, Urine Neg (Neg); Ketones, Urine 1+ (Neg); Leukocyte Esterase, Urine Neg (Neg); Nitrite, Urine Neg (Neg); Protein, Urine 1+ (Neg); Specific Gravity, Urine 1.015 (1.003-1.022); Urobilinogen, Urine NORM (Normal)
[2022-12-29 17:30] VITALS: BP 107/67
[2022-12-29 17:30] LABS: Color, Urine Pale Yellow (P-Yellow)
== END 2022-12-29 18:19 | disposition home or self-care (01) ==
LOC: ER 15:29
PROVIDERS: Physician Assistant
DX: I48.91 Unspecified atrial fibrillation (principal); Z88.8 Allergy status to other drugs, medicaments and biological substances; Z88.5 Allergy status to narcotic agent; Z88.2 Allergy status to sulfonamides; Z79.899 Other long term (current) drug therapy; Z79.84 Long term (current) use of oral hypoglycemic drugs; Z79.01 Long term (current) use of anticoagulants; I10 Essential (primary) hypertension; J45.909 Unspecified asthma, uncomplicated; M06.9 Rheumatoid arthritis, unspecified; E11.9 Type 2 diabetes mellitus without complications
CPT/HCPCS: 80053; 85025; 93005; 93010; 96374; 99285-25; A9270

== ENCOUNTER 2023-01-09 12:10 | Emergency (ER) | payer OTHER ==
[~2023-01-09] VITALS: Ht 177.8 cm; Wt 95.2 kg
[~2023-01-09 12:10] MED LIST changes: +CITALOPRAM HBR10 MG PO
[2023-01-09 12:18] VITALS: BP 152/88
[2023-01-09 12:44] LABS: BASOPHILS ABSOLUTE AUTO 0.06 K/mm3 (0.00-0.23); BASOPHILS PERCENT AUTO 1 % (0-2); EOSINOPHILS ABSOLUTE AUTO 0.04 K/mm3 (0.00-0.68); EOSINOPHILS PERCENT AUTO 1 % (0-6); Hematocrit 46.4 % (37.0-53.0); Hemoglobin 16.1 g/dL (13.5-17.5); IMMATURE GRAN ABSOLUTE AUTO 0.01 K/mm3 (0.00-0.10); IMMATURE GRAN PERCENT AUTO 0 % (0-1); LYMPHOCYTES ABSOLUTE AUTO 1.18 K/mm3 (0.84-5.20); LYMPHOCYTES PERCENT AUTO 26 % (21-46); MONOCYTES ABSOLUTE AUTO 0.56 K/mm3 (0.16-1.47); MONOCYTES PERCENT AUTO 13 % (4-13); Mean Corpuscular HGB 31.8 pg (26.0-34.0); Mean Corpuscular HGB Conc 34.7 g/dL (31.5-36.5); Mean Corpuscular Volume 92 fL (80-100); Mean Platelet Volume 9.9 fL (9.1-12.4); NEUTROPHILS ABSOLUTE AUTO 2.64 K/mm3 (1.96-9.15); NEUTROPHILS PERCENT AUTO 59 % (41-73); Platelet Count 229 K/mm3 (150-400); RDW Coefficient Variation 13.2 % (11.7-14.2); RDW Standard Deviation 44.2 fL (35.1-46.3); Red Blood Cell Count 5.07 M/mm3 (4.30-5.90); White Blood Cell Count 4.49 K/mm3 (4.00-11.30)
[2023-01-09 13:06] LABS: Albumin, Blood 4.1 g/dL (3.4-5.0); Albumin/Globulin Ratio 1.4 (0.8-1.8); Bun/Creatinine Ratio 21.2 (12.0-20.0); Calcium, Blood 8.8 mg/dL (8.5-10.1); Creatinine, Blood 0.66 mg/dL (0.60-1.20); Magnesium, Blood 1.9 mg/dL (1.6-2.4); Phosphorus, Blood 2.3 mg/dL (2.5-4.9); Potassium, Blood 4.2 mmol/L (3.5-5.5); Total Protein, Blood 7.1 g/dL (6.4-8.2)
[2023-01-09] MEDS ORDERED: Ativan1 MG PO (13:41)
== END 2023-01-09 14:06 | disposition home or self-care (01) ==
LOC: ER 12:10
PROVIDERS: Physician Assistant
DX: R00.2 Palpitations (principal); I10 Essential (primary) hypertension; E11.9 Type 2 diabetes mellitus without complications; I48.0 Paroxysmal atrial fibrillation; Z88.2 Allergy status to sulfonamides; Z88.5 Allergy status to narcotic agent; Z88.8 Allergy status to other drugs, medicaments and biological substances; Z79.01 Long term (current) use of anticoagulants; Z79.84 Long term (current) use of oral hypoglycemic drugs; Z79.899 Other long term (current) drug therapy
CPT/HCPCS: 36415; 80053; 83735; 84100; 85025; 93005; 93010; 99285-25

== ENCOUNTER 2023-02-07 04:20 | Emergency (ER) | payer OTHER ==
[~2023-02-07] VITALS: Ht 172.7 cm; Wt 95.2 kg
[~2023-02-07 04:20] MED LIST changes: +Ativan1 MG PO
[2023-02-07 04:36] LABS: BASOPHILS ABSOLUTE AUTO 0.04 K/mm3 (0.00-0.23); BASOPHILS PERCENT AUTO 1 % (0-2); EOSINOPHILS ABSOLUTE AUTO 0.07 K/mm3 (0.00-0.68); EOSINOPHILS PERCENT AUTO 2 % (0-6); Hematocrit 46.4 % (37.0-53.0); Hemoglobin 16.3 g/dL (13.5-17.5); IMMATURE GRAN ABSOLUTE AUTO 0.01 K/mm3 (0.00-0.10); IMMATURE GRAN PERCENT AUTO 0 % (0-1); LYMPHOCYTES ABSOLUTE AUTO 1.24 K/mm3 (0.84-5.20); LYMPHOCYTES PERCENT AUTO 28 % (21-46); MONOCYTES ABSOLUTE AUTO 0.55 K/mm3 (0.16-1.47); MONOCYTES PERCENT AUTO 12 % (4-13); Mean Corpuscular HGB 32.2 pg (26.0-34.0); Mean Corpuscular HGB Conc 35.1 g/dL (31.5-36.5); Mean Corpuscular Volume 92 fL (80-100); Mean Platelet Volume 10.5 fL (9.1-12.4); NEUTROPHILS ABSOLUTE AUTO 2.53 K/mm3 (1.96-9.15); NEUTROPHILS PERCENT AUTO 57 % (41-73); Platelet Count 225 K/mm3 (150-400); RDW Coefficient Variation 13.2 % (11.7-14.2); RDW Standard Deviation 44.6 fL (35.1-46.3); Red Blood Cell Count 5.06 M/mm3 (4.30-5.90); White Blood Cell Count 4.44 K/mm3 (4.00-11.30)
[2023-02-07 05:09] LABS: Albumin/Globulin Ratio 1.2 (0.8-1.8); Bun/Creatinine Ratio 17.2 (12.0-20.0); Calcium, Blood 8.9 mg/dL (8.5-10.1); Creatinine, Blood 0.76 mg/dL (0.60-1.20); Globulin, Blood 3.2 g/dL (2.2-4.0); Potassium, Blood 3.7 mmol/L (3.5-5.5); Total Protein, Blood 7.2 g/dL (6.4-8.2)
[2023-02-07 05:30] VITALS: BP 121/66
== END 2023-02-07 05:49 | disposition home or self-care (01) ==
LOC: ER 04:20
PROVIDERS: Emergency Medicine
DX: I48.0 Paroxysmal atrial fibrillation (principal); I10 Essential (primary) hypertension; E11.9 Type 2 diabetes mellitus without complications; Z88.2 Allergy status to sulfonamides; Z88.5 Allergy status to narcotic agent; Z88.8 Allergy status to other drugs, medicaments and biological substances; Z79.84 Long term (current) use of oral hypoglycemic drugs; Z79.01 Long term (current) use of anticoagulants; Z79.899 Other long term (current) drug therapy
CPT/HCPCS: 71045; 80053; 84484; 85025; 93005; 93010

== ENCOUNTER → 2023-02-27 | Outpatient (CLI) | payer OTHER ==
[2023-03-05 05:12] LABS: FREE TESTOSTERONE(DIRECT) 10.7 pg/mL (6.6-18.1)
== END | disposition home or self-care (01) ==
LOC: LAB 14:38 → LAB SHORT 14:38
PROVIDERS: Nurse Practitioner Family
DX: F64.0 Transsexualism (principal)
CPT/HCPCS: 84402; 84403

== ENCOUNTER 2023-03-26 02:58 | Day surgery (SDC) | payer OTHER ==
[2023-03-26] MEDS ORDERED: METO50ER PO (13:34)
[2023-03-26 13:43] VITALS: BP 133/69
== END 2023-03-26 14:48 | disposition home or self-care (01) ==
LOC: ATC 02:58
DX: M05.79 Rheumatoid arthritis with rheumatoid factor of multiple sites without organ or systems involvement (principal); F32.9 Major depressive disorder, single episode, unspecified; E11.9 Type 2 diabetes mellitus without complications; E78.00 Pure hypercholesterolemia, unspecified; J45.909 Unspecified asthma, uncomplicated; F64.0 Transsexualism; Z88.2 Allergy status to sulfonamides; Z88.5 Allergy status to narcotic agent
CPT/HCPCS: 96365; J3262

== ENCOUNTER 2023-04-23 01:53 | Day surgery (SDC) | payer OTHER ==
[~2023-04-23 01:53] MED LIST changes: +METO50ER PO
[2023-04-23 14:23] VITALS: BP 127/68
[2023-04-23] MEDS ORDERED: FLUT1DIS5 INH (15:21)
== END 2023-04-23 16:00 | disposition home or self-care (01) ==
LOC: ATC 01:53
DX: M05.79 Rheumatoid arthritis with rheumatoid factor of multiple sites without organ or systems involvement (principal); E11.9 Type 2 diabetes mellitus without complications; E78.00 Pure hypercholesterolemia, unspecified
CPT/HCPCS: 96365; J3262

== ENCOUNTER 2023-05-21 08:46 | Day surgery (SDC) | payer OTHER ==
[~2023-05-21] VITALS: Wt 95.4 kg
[~2023-05-21 08:46] MED LIST changes: +FLUT1DIS5 INH
[2023-05-21 11:30] VITALS: BP 125/72
[2023-05-21] MEDS ORDERED: DILT30 PO (11:33)
[2023-05-21] MEDS ORDERED: Ventolin/Prove6.7 GM INH (11:33)
[2023-05-21] MEDS ORDERED: FLUTICASONE-SA1 EA10 INH (11:34)
== END 2023-05-21 12:51 | disposition home or self-care (01) ==
LOC: ATC 08:46
DX: M05.79 Rheumatoid arthritis with rheumatoid factor of multiple sites without organ or systems involvement (principal); I48.91 Unspecified atrial fibrillation; E11.9 Type 2 diabetes mellitus without complications; E78.00 Pure hypercholesterolemia, unspecified; Z88.2 Allergy status to sulfonamides; Z88.5 Allergy status to narcotic agent
CPT/HCPCS: 96365; J3262

== ENCOUNTER 2023-06-20 07:51 | Day surgery (SDC) | payer OTHER ==
[~2023-06-20 07:51] MED LIST changes: +DILT30 PO; +FLUTICASONE-SA1 EA10 INH; +Ventolin/Prove6.7 GM INH
[2023-06-20 13:30] VITALS: BP 128/89
[2023-06-20] MEDS ORDERED: POTCHL20ER PO (16:57)
== END 2023-06-20 15:01 | disposition home or self-care (01) ==
LOC: ATC 07:51
DX: M05.79 Rheumatoid arthritis with rheumatoid factor of multiple sites without organ or systems involvement (principal)
CPT/HCPCS: 96365; J3262

== ENCOUNTER 2023-07-17 14:35 | Observation (INO) | payer OTHER ==
[~2023-07-17] VITALS: Ht 177.8 cm; Wt 92.7 kg
[~2023-07-17 14:35] MED LIST changes: +POTCHL20ER PO
[2023-07-17 15:24] LABS: International Normalized Ratio 2.68; Prothrombin Time Results 26.6 Sec (9.7-11.5)
[2023-07-17 16:10] LABS: BASOPHILS ABSOLUTE AUTO 0.04 K/mm3 (0.00-0.23); BASOPHILS PERCENT AUTO 1 % (0-2); EOSINOPHILS ABSOLUTE AUTO 0.04 K/mm3 (0.00-0.68); EOSINOPHILS PERCENT AUTO 1 % (0-6); Hematocrit 47.8 % (37.0-53.0); Hemoglobin 17.2 g/dL (13.5-17.5); IMMATURE GRAN ABSOLUTE AUTO 0.02 K/mm3 (0.00-0.10); IMMATURE GRAN PERCENT AUTO 0 % (0-1); LYMPHOCYTES ABSOLUTE AUTO 1.43 K/mm3 (0.84-5.20); LYMPHOCYTES PERCENT AUTO 21 % (21-46); MONOCYTES ABSOLUTE AUTO 0.73 K/mm3 (0.16-1.47); MONOCYTES PERCENT AUTO 11 % (4-13); Mean Corpuscular HGB 32.8 pg (26.0-34.0); Mean Corpuscular Volume 91 fL (80-100); NEUTROPHILS ABSOLUTE AUTO 4.42 K/mm3 (1.96-9.15); NEUTROPHILS PERCENT AUTO 66 % (41-73); Platelet Count 206 K/mm3 (150-400); RDW Coefficient Variation 13.1 % (11.7-14.2); RDW Standard Deviation 43.5 fL (35.1-46.3); Red Blood Cell Count 5.25 M/mm3 (4.30-5.90); White Blood Cell Count 6.68 K/mm3 (4.00-11.30)
[2023-07-17 16:22] LABS: Albumin/Globulin Ratio 1.3 (0.8-1.8); Bilirubin, Total 1.7 mg/dL (0.1-1.0); Bun/Creatinine Ratio 18.1 (12.0-20.0); Calcium, Blood 8.9 mg/dL (8.5-10.1); Creatinine, Blood 0.66 mg/dL (0.60-1.20); Globulin, Blood 3.1 g/dL (2.2-4.0); Potassium, Blood 3.9 mmol/L (3.5-5.5); Total Protein, Blood 7.1 g/dL (6.4-8.2)
[2023-07-17] MEDS ORDERED: CELEXA10 MG PO (18:27)
[2023-07-17] MEDS ORDERED: DEPO-TESTO200 MG/18 IM (18:28)
[2023-07-17] MEDS ORDERED: LOSARTAN-HCTZ1 EAC5 PO (18:28)
[2023-07-17 21:51] VITALS: BP 136/74
[2023-07-18 02:32] VITALS: BP 116/77
--- NOTE | 2023-07-18 04:16 | NUR ---
SHIFT SUMMARY JESUS ALBERTO ARRIVED FROM THE ED AROUND 2200. HE WAS ALERT AND FULLY ORIENTED AND ABLE TO AMBULATE TO THE BED WITHOUT ASSISTANCE. PT CARDIAC RHYTHM HAS CONVERTED FROM AFIB WITH RVR TO NORMAL SINUS RHYTHM. NO ACUTE EVENTS THIS SHIFT. PT EDUCATED ON ROOM SAFETY AND CALL LIGHT. PT CURRENTLY RESTING IN BED AT A LOW POSITION WITH THE CALL LIGHT IN REACH.
[2023-07-18 05:47] LABS: Bun/Creatinine Ratio 18.3 (12.0-20.0); Calcium, Blood 8.7 mg/dL (8.5-10.1); Creatinine, Blood 0.87 mg/dL (0.60-1.20); Potassium, Blood 3.9 mmol/L (3.5-5.5)
[2023-07-18 05:51] LABS: International Normalized Ratio 2.74; Prothrombin Time Results 27.2 Sec (9.7-11.5)
[2023-07-18 07:03] VITALS: BP 115/70
[2023-07-18 09:39] VITALS: BP 128/75
[2023-07-18 11:41] VITALS: BP 107/77
[2023-07-18] MEDS ORDERED: MAGNESIUM OXID500 MG PO (13:22)
--- NOTE | 2023-07-18 14:22 | NUR ---
SHIFT SUMMARY PT DISCHARGED TO HOME. PT EDUCATED ON ALL DISCHARGE INSTRUCTIONS, ALL QUESTIONS ANSWERED. PT AGREES TO FOLLOW UP WITH PCP AND TO TAKE MEDICATIONS PRESCRIBED. IV'S DC'D AND BELONGINGS RETURNED.
== END 2023-07-18 14:21 | disposition home or self-care (01) ==
LOC: ER 14:35 → MEDS 14:36
PROVIDERS: Emergency Medicine; Nurse Practitioner Acute Care; Physician Assistant; ADMIT Internal Medicine
DX: I48.0 Paroxysmal atrial fibrillation (principal); I48.92 Unspecified atrial flutter; I10 Essential (primary) hypertension; E11.9 Type 2 diabetes mellitus without complications; G47.33 Obstructive sleep apnea (adult) (pediatric); J45.909 Unspecified asthma, uncomplicated; M06.9 Rheumatoid arthritis, unspecified; F41.9 Anxiety disorder, unspecified; Z79.01 Long term (current) use of anticoagulants; Z79.84 Long term (current) use of oral hypoglycemic drugs; Z79.899 Other long term (current) drug therapy
CPT/HCPCS: 36415; 71046; 80048; 80053; 82947; 83735; 83880; 84443; 84484; 85025; 85610; 93005; 93010; 94640; 94660; 94664; 94762; 96365; 96366; 96367; 99285-25; A9270; G0378; J3475

== ENCOUNTER 2023-07-26 01:40 | Day surgery (SDC) | payer OTHER ==
[~2023-07-26 01:40] MED LIST changes: +CELEXA10 MG PO; +DEPO-TESTO200 MG/18 IM; +LOSARTAN-HCTZ1 EAC5 PO
[2023-07-26 15:14] VITALS: BP 130/90
[2023-07-26 16:06] LABS: CHOL/HDL RATIO 7.6; Cholesterol 227 mg/dL (50-200); HDL Cholesterol 30 mg/dL (>39); Triglycerides 548 mg/dL (30-160); Very Low Density Lipoprot Chol Unable to Calculate mg/dL (6-32)
[2023-07-26 16:13] LABS: LDL/HDL RATIO Unable to Calculate; Low Density Lipoprotein Chol Unable to Calculate mg/dL (0-110)
== END 2023-07-26 16:30 | disposition home or self-care (01) ==
LOC: ATC 01:40
PROVIDERS: Internal Medicine Rheumatology
DX: M05.79 Rheumatoid arthritis with rheumatoid factor of multiple sites without organ or systems involvement (principal); I48.91 Unspecified atrial fibrillation; F32.A Depression, unspecified; E11.9 Type 2 diabetes mellitus without complications; E78.00 Pure hypercholesterolemia, unspecified; F64.0 Transsexualism; Z88.2 Allergy status to sulfonamides; Z88.5 Allergy status to narcotic agent
CPT/HCPCS: 80061; 96365; J3262

== ENCOUNTER 2023-08-23 03:09 | Day surgery (SDC) | payer OTHER ==
[~2023-08-23] VITALS: Wt 95.5 kg
[2023-08-23 09:41] VITALS: BP 124/62
== END 2023-08-23 11:00 | disposition home or self-care (01) ==
LOC: ATC 03:09
DX: M05.79 Rheumatoid arthritis with rheumatoid factor of multiple sites without organ or systems involvement (principal); I48.91 Unspecified atrial fibrillation; F32.A Depression, unspecified; E78.00 Pure hypercholesterolemia, unspecified; F64.0 Transsexualism; J45.909 Unspecified asthma, uncomplicated; Z79.84 Long term (current) use of oral hypoglycemic drugs; Z79.899 Other long term (current) drug therapy
CPT/HCPCS: 96365; J3262

== ENCOUNTER 2023-09-20 03:14 | Day surgery (SDC) | payer OTHER ==
[2023-09-20 10:20] VITALS: BP 155/78
== END 2023-09-20 11:43 | disposition home or self-care (01) ==
LOC: ATC 03:14
DX: M05.79 Rheumatoid arthritis with rheumatoid factor of multiple sites without organ or systems involvement (principal); Z88.5 Allergy status to narcotic agent; Z88.2 Allergy status to sulfonamides; F32.A Depression, unspecified; E78.00 Pure hypercholesterolemia, unspecified
CPT/HCPCS: 96365; J3262

== ENCOUNTER 2024-03-12 03:12 | Day surgery (SDC) | payer OTHER ==
[~2024-03-12 03:12] MED LIST changes: +ATORVASTATIN CA20 MG PO; +FLUT1DIS8 INH; +JANTOVEN5 M2 PO
[2024-03-12] MEDS ORDERED: Tocilizumab 800 MG in NS 60 ML IV SCH (06:00)
[2024-03-12 15:51] VITALS: BP 127/69
== END 2024-03-12 17:15 | disposition home or self-care (01) ==
LOC: ATC 03:12
DX: M05.79 Rheumatoid arthritis with rheumatoid factor of multiple sites without organ or systems involvement (principal); I48.91 Unspecified atrial fibrillation; E11.9 Type 2 diabetes mellitus without complications; Z88.5 Allergy status to narcotic agent; Z88.2 Allergy status to sulfonamides; Z79.84 Long term (current) use of oral hypoglycemic drugs; Z79.899 Other long term (current) drug therapy
CPT/HCPCS: 96365; J3262

== ENCOUNTER → 2024-03-18 | Outpatient (CLI) | payer OTHER ==
[2024-03-18 17:27] LABS: Hematocrit 47.5 % (37.0-53.0); Hemoglobin 16.6 g/dL (13.5-17.5); Mean Corpuscular HGB 33.1 pg (26.0-34.0); Mean Corpuscular HGB Conc 34.9 g/dL (31.5-36.5); Mean Corpuscular Volume 95 fL (80-100); Mean Platelet Volume 10.7 fL (9.1-12.4); Platelet Count 218 K/mm3 (150-400); RDW Coefficient Variation 13.2 % (11.7-14.2); Red Blood Cell Count 5.01 M/mm3 (4.30-5.90); White Blood Cell Count 5.53 K/mm3 (4.00-11.30)
[2024-03-18 18:24] LABS: Thyroid Stimulating Hormone 2.37 uIU/mL (0.360-4.800)
[2024-03-18 18:29] LABS: Albumin, Blood 4.6 g/dL (3.4-5.0); Albumin/Globulin Ratio 1.6 (0.8-1.8); Bilirubin, Total 2.3 mg/dL (0.1-1.0); Bun/Creatinine Ratio 22.8 (12.0-20.0); Creatinine, Blood 0.74 mg/dL (0.60-1.20); Globulin, Blood 2.8 g/dL (2.2-4.0); Total Protein, Blood 7.4 g/dL (6.4-8.2)
[2024-03-19 23:49] LABS: VITAMIN D,1,25-DIHYDROXY 54.1 pg/mL (19.9-79.3)
== END ==
LOC: LAB SHORT 16:44 → LAB 16:44
PROVIDERS: Nurse Practitioner Family
DX: R53.83 Other fatigue (principal); D51.9 Vitamin B12 deficiency anemia, unspecified; E11.59 Type 2 diabetes mellitus with other circulatory complications; E55.9 Vitamin D deficiency, unspecified
CPT/HCPCS: 80053; 82607; 82652; 82728; 82746; 84443; 85027

== ENCOUNTER 2024-04-09 03:14 | Day surgery (SDC) | payer OTHER ==
[~2024-04-09] VITALS: Wt 96.9 kg
[2024-04-09] MEDS ORDERED: Tocilizumab 800 MG in NS 60 ML IV SCH (06:00)
[2024-04-09 10:18] VITALS: BP 122/64
== END 2024-04-09 11:52 | disposition home or self-care (01) ==
LOC: ATC 03:14
DX: M05.79 Rheumatoid arthritis with rheumatoid factor of multiple sites without organ or systems involvement (principal); E11.9 Type 2 diabetes mellitus without complications; I48.91 Unspecified atrial fibrillation; Z88.5 Allergy status to narcotic agent; Z88.2 Allergy status to sulfonamides; Z79.84 Long term (current) use of oral hypoglycemic drugs; Z79.899 Other long term (current) drug therapy
CPT/HCPCS: 96365; J3262

== ENCOUNTER 2024-05-07 02:37 | Day surgery (SDC) | payer OTHER ==
[2024-05-07] MEDS ORDERED: Tocilizumab 800 MG in NS 60 ML IV SCH (06:00)
[2024-05-07 14:07] VITALS: BP 127/71
== END 2024-05-07 15:32 | disposition home or self-care (01) ==
LOC: ATC 02:37
DX: M05.79 Rheumatoid arthritis with rheumatoid factor of multiple sites without organ or systems involvement (principal); I48.91 Unspecified atrial fibrillation; E11.9 Type 2 diabetes mellitus without complications; J45.909 Unspecified asthma, uncomplicated; Z88.5 Allergy status to narcotic agent; Z88.2 Allergy status to sulfonamides; Z79.01 Long term (current) use of anticoagulants; Z79.84 Long term (current) use of oral hypoglycemic drugs; Z79.899 Other long term (current) drug therapy
CPT/HCPCS: 96365; J3262

== ENCOUNTER 2024-06-04 01:48 | Day surgery (SDC) | payer OTHER ==
[2024-06-04] MEDS ORDERED: Tocilizumab 800 MG in NS 60 ML IV SCH (06:00)
[2024-06-04 15:00] VITALS: BP 142/80
== END 2024-06-04 17:02 | disposition home or self-care (01) ==
LOC: ATC 01:48
DX: M05.79 Rheumatoid arthritis with rheumatoid factor of multiple sites without organ or systems involvement (principal); I48.91 Unspecified atrial fibrillation; E11.9 Type 2 diabetes mellitus without complications; J45.909 Unspecified asthma, uncomplicated; Z88.5 Allergy status to narcotic agent; Z88.2 Allergy status to sulfonamides; Z79.01 Long term (current) use of anticoagulants; Z79.899 Other long term (current) drug therapy
CPT/HCPCS: 96365; J3262

== ENCOUNTER 2024-07-02 02:25 | Day surgery (SDC) | payer OTHER ==
[~2024-07-02] VITALS: Wt 98.1 kg
[2024-07-02] MEDS ORDERED: Tocilizumab 800 MG in NS 60 ML IV SCH (06:00)
[2024-07-02 13:56] VITALS: BP 151/81
== END 2024-07-02 15:25 | disposition home or self-care (01) ==
LOC: ATC 02:25
DX: M05.79 Rheumatoid arthritis with rheumatoid factor of multiple sites without organ or systems involvement (principal); I48.91 Unspecified atrial fibrillation; E11.9 Type 2 diabetes mellitus without complications; E78.00 Pure hypercholesterolemia, unspecified; F64.0 Transsexualism; Z79.84 Long term (current) use of oral hypoglycemic drugs; Z79.01 Long term (current) use of anticoagulants; Z79.899 Other long term (current) drug therapy; Z88.5 Allergy status to narcotic agent; Z88.2 Allergy status to sulfonamides
CPT/HCPCS: 96365; J3262

== ENCOUNTER 2024-07-30 04:47 | Day surgery (SDC) | payer OTHER ==
[~2024-07-30] VITALS: Wt 100.3 kg
[2024-07-30] MEDS ORDERED: Tocilizumab 800 MG in NS 60 ML IV SCH (06:00)
[2024-07-30 14:05] VITALS: BP 162/74
[2024-07-30 14:53] LABS: CHOL/HDL RATIO 6.7; Cholesterol 273 mg/dL (50-200); HDL Cholesterol 41 mg/dL (>39); LDL/HDL RATIO 4.3; Low Density Lipoprotein Chol 176 mg/dL (0-110); Triglycerides 281 mg/dL (30-160); Very Low Density Lipoprot Chol 56 mg/dL (6-32)
== END 2024-07-30 23:30 | disposition home or self-care (01) ==
LOC: ATC 04:47
PROVIDERS: Internal Medicine Rheumatology
DX: M05.79 Rheumatoid arthritis with rheumatoid factor of multiple sites without organ or systems involvement (principal); E11.9 Type 2 diabetes mellitus without complications; J45.909 Unspecified asthma, uncomplicated; E78.00 Pure hypercholesterolemia, unspecified; Z79.899 Other long term (current) drug therapy; Z79.84 Long term (current) use of oral hypoglycemic drugs; Z79.01 Long term (current) use of anticoagulants; Z88.7 Allergy status to serum and vaccine; Z88.5 Allergy status to narcotic agent; Z88.2 Allergy status to sulfonamides
CPT/HCPCS: 80061; 96365; J3262

== ENCOUNTER 2024-08-27 02:25 | Day surgery (SDC) | payer OTHER ==
[~2024-08-27] VITALS: Wt 99.1 kg
[~2024-08-27 02:25] MED LIST changes: +NS IV SCH; +TOCILIZUMAB IV SCH
[2024-08-27 15:05] VITALS: BP 146/73
[2024-08-27] MEDS ORDERED: TOCILIZUMAB IV SCH (15:55)
[2024-08-27] MEDS ORDERED: NS IV SCH (15:55)
== END 2024-08-27 17:27 | disposition home or self-care (01) ==
LOC: ATC 02:25
DX: M05.79 Rheumatoid arthritis with rheumatoid factor of multiple sites without organ or systems involvement (principal); I48.91 Unspecified atrial fibrillation; E11.9 Type 2 diabetes mellitus without complications; J45.909 Unspecified asthma, uncomplicated; Z79.01 Long term (current) use of anticoagulants; Z79.84 Long term (current) use of oral hypoglycemic drugs; Z79.899 Other long term (current) drug therapy; Z88.7 Allergy status to serum and vaccine; I48.0 Paroxysmal atrial fibrillation; D68.69 Other thrombophilia
CPT/HCPCS: 36416; 85610; 96365; J3262

== ENCOUNTER 2024-09-05 19:23 | Emergency (ER) | payer OTHER ==
[~2024-09-05] VITALS: Ht 177.8 cm; Wt 97.5 kg
[~2024-09-05 19:23] MED LIST changes: -NS IV SCH; -TOCILIZUMAB IV SCH
[2024-09-05 20:35] LABS: BASOPHILS ABSOLUTE AUTO 0.05 K/mm3 (0.00-0.23); BASOPHILS PERCENT AUTO 1 % (0-2); EOSINOPHILS ABSOLUTE AUTO 0.08 K/mm3 (0.00-0.68); EOSINOPHILS PERCENT AUTO 1 % (0-6); Hematocrit 45.9 % (37.0-53.0); Hemoglobin 16.3 g/dL (13.5-17.5); IMMATURE GRAN ABSOLUTE AUTO 0.01 K/mm3 (0.00-0.10); IMMATURE GRAN PERCENT AUTO 0 % (0-1); LYMPHOCYTES ABSOLUTE AUTO 1.15 K/mm3 (0.84-5.20); LYMPHOCYTES PERCENT AUTO 20 % (21-46); MONOCYTES ABSOLUTE AUTO 0.78 K/mm3 (0.16-1.47); MONOCYTES PERCENT AUTO 14 % (4-13); Mean Corpuscular HGB 32.9 pg (26.0-34.0); Mean Corpuscular HGB Conc 35.5 g/dL (31.5-36.5); Mean Corpuscular Volume 93 fL (80-100); Mean Platelet Volume 9.7 fL (9.1-12.4); NEUTROPHILS ABSOLUTE AUTO 3.61 K/mm3 (1.96-9.15); NEUTROPHILS PERCENT AUTO 64 % (41-73); Platelet Count 189 K/mm3 (150-400); RDW Coefficient Variation 13.4 % (11.7-14.2); RDW Standard Deviation 45.1 fL (35.1-46.3); Red Blood Cell Count 4.96 M/mm3 (4.30-5.90); White Blood Cell Count 5.68 K/mm3 (4.00-11.30)
[2024-09-05 21:01] LABS: Albumin, Blood 3.8 g/dL (3.4-5.0); Albumin/Globulin Ratio 1.3 (0.8-1.8); Bilirubin, Total 1.6 mg/dL (0.1-1.0); Bun/Creatinine Ratio 19.3 (12.0-20.0); Calcium, Blood 9.8 mg/dL (8.5-10.1); Creatinine, Blood 0.83 mg/dL (0.60-1.20); Potassium, Blood 4.3 mmol/L (3.5-5.5); Total Protein, Blood 6.8 g/dL (6.4-8.2)
[2024-09-05] MEDS ORDERED: ACTEMRA162 MG/0.1 (23:56)
[2024-09-06 01:00] VITALS: BP 144/74
== END 2024-09-06 01:59 | disposition home or self-care (01) ==
LOC: ER 19:23
PROVIDERS: Physician Assistant
DX: I89.0 Lymphedema, not elsewhere classified (principal); G56.21 Lesion of ulnar nerve, right upper limb; I10 Essential (primary) hypertension; E11.9 Type 2 diabetes mellitus without complications; J45.909 Unspecified asthma, uncomplicated; G47.33 Obstructive sleep apnea (adult) (pediatric); Z79.899 Other long term (current) drug therapy; Z79.84 Long term (current) use of oral hypoglycemic drugs; Z88.2 Allergy status to sulfonamides; Z88.5 Allergy status to narcotic agent; Z88.8 Allergy status to other drugs, medicaments and biological substances
CPT/HCPCS: 80053; 85025; 99283

== ENCOUNTER 2024-09-25 06:05 | Day surgery (SDC) | payer OTHER ==
[~2024-09-25] VITALS: Wt 99.0 kg
[~2024-09-25 06:05] MED LIST changes: +ACTEMRA162 MG/0.1; +Tocilizumab 800 MG in NS 60 ML IV SCH
[2024-09-25 13:54] VITALS: BP 153/77
== END 2024-09-25 15:30 | disposition home or self-care (01) ==
LOC: ATC 06:05
DX: M05.79 Rheumatoid arthritis with rheumatoid factor of multiple sites without organ or systems involvement (principal); F64.0 Transsexualism; I48.91 Unspecified atrial fibrillation; E11.9 Type 2 diabetes mellitus without complications; E78.00 Pure hypercholesterolemia, unspecified; Z79.01 Long term (current) use of anticoagulants; Z79.84 Long term (current) use of oral hypoglycemic drugs; Z79.899 Other long term (current) drug therapy
CPT/HCPCS: 96365; J3262

== ENCOUNTER → 2024-10-07 | Outpatient (CLI) | payer OTHER ==
[~2024-10-07] MED LIST changes: -Tocilizumab 800 MG in NS 60 ML IV SCH; +Ventolin5 MG/1 ML INH
[2024-10-07 14:41] LABS: BASOPHILS ABSOLUTE AUTO 0.05 K/mm3 (0.00-0.23); BASOPHILS PERCENT AUTO 1 % (0-2); EOSINOPHILS ABSOLUTE AUTO 0.03 K/mm3 (0.00-0.68); EOSINOPHILS PERCENT AUTO 1 % (0-6); Hematocrit 48.6 % (37.0-53.0); Hemoglobin 17.1 g/dL (13.5-17.5); IMMATURE GRAN ABSOLUTE AUTO 0.01 K/mm3 (0.00-0.10); IMMATURE GRAN PERCENT AUTO 0 % (0-1); LYMPHOCYTES PERCENT AUTO 22 % (21-46); MONOCYTES ABSOLUTE AUTO 0.58 K/mm3 (0.16-1.47); MONOCYTES PERCENT AUTO 13 % (4-13); Mean Corpuscular HGB Conc 35.2 g/dL (31.5-36.5); Mean Corpuscular Volume 94 fL (80-100); Mean Platelet Volume 9.4 fL (9.1-12.4); NEUTROPHILS ABSOLUTE AUTO 2.91 K/mm3 (1.96-9.15); NEUTROPHILS PERCENT AUTO 64 % (41-73); Platelet Count 194 K/mm3 (150-400); RDW Coefficient Variation 13.8 % (11.7-14.2); Red Blood Cell Count 5.18 M/mm3 (4.30-5.90); White Blood Cell Count 4.58 K/mm3 (4.00-11.30)
[2024-10-07 14:51] LABS: Albumin, Blood 4.4 g/dL (3.4-5.0); Albumin/Globulin Ratio 1.4 (0.8-1.8); Bilirubin, Total 2.2 mg/dL (0.1-1.0); Bun/Creatinine Ratio 22.4 (12.0-20.0); Calcium, Blood 9.4 mg/dL (8.5-10.1); Creatinine, Blood 0.76 mg/dL (0.60-1.20); Globulin, Blood 3.1 g/dL (2.2-4.0); Potassium, Blood 4.2 mmol/L (3.5-5.5); Total Protein, Blood 7.5 g/dL (6.4-8.2)
== END ==
LOC: LAB SHORT 14:38 → LAB 14:38
PROVIDERS: Family Medicine
DX: I48.20 Chronic atrial fibrillation, unspecified (principal)
CPT/HCPCS: 80053; 83880; 85025

== ENCOUNTER 2024-10-18 14:11 | Emergency (ER) | payer OTHER ==
[~2024-10-18] VITALS: Ht 177.8 cm; Wt 98.9 kg
[~2024-10-18 14:11] MED LIST changes: -Ventolin5 MG/1 ML INH
[2024-10-18 15:22] LABS: BASOPHILS ABSOLUTE AUTO 0.05 K/mm3 (0.00-0.23); BASOPHILS PERCENT AUTO 1 % (0-2); EOSINOPHILS ABSOLUTE AUTO 0.03 K/mm3 (0.00-0.68); EOSINOPHILS PERCENT AUTO 1 % (0-6); Hematocrit 48.9 % (37.0-53.0); Hemoglobin 17.4 g/dL (13.5-17.5); IMMATURE GRAN ABSOLUTE AUTO 0.01 K/mm3 (0.00-0.10); IMMATURE GRAN PERCENT AUTO 0 % (0-1); LYMPHOCYTES ABSOLUTE AUTO 0.98 K/mm3 (0.84-5.20); LYMPHOCYTES PERCENT AUTO 20 % (21-46); MONOCYTES ABSOLUTE AUTO 0.75 K/mm3 (0.16-1.47); MONOCYTES PERCENT AUTO 16 % (4-13); Mean Corpuscular HGB 33.5 pg (26.0-34.0); Mean Corpuscular HGB Conc 35.6 g/dL (31.5-36.5); Mean Corpuscular Volume 94 fL (80-100); Mean Platelet Volume 9.7 fL (9.1-12.4); NEUTROPHILS ABSOLUTE AUTO 3.02 K/mm3 (1.96-9.15); NEUTROPHILS PERCENT AUTO 63 % (41-73); Platelet Count 199 K/mm3 (150-400); RDW Coefficient Variation 13.5 % (11.7-14.2); RDW Standard Deviation 46.8 fL (35.1-46.3); White Blood Cell Count 4.84 K/mm3 (4.00-11.30)
[2024-10-18 15:48] LABS: Albumin, Blood 4.5 g/dL (3.4-5.0); Albumin/Globulin Ratio 1.5 (0.8-1.8); Bilirubin, Total 2.1 mg/dL (0.1-1.0); Bun/Creatinine Ratio 19.7 (12.0-20.0); Calcium, Blood 9.3 mg/dL (8.5-10.1); Creatinine, Blood 0.76 mg/dL (0.60-1.20); Globulin, Blood 3.1 g/dL (2.2-4.0); Potassium, Blood 3.9 mmol/L (3.5-5.5); Total Protein, Blood 7.6 g/dL (6.4-8.2)
[2024-10-18 16:14] VITALS: BP 146/76
[2024-10-18] MEDS ORDERED: Ventolin5 MG/1 ML INH (17:09)
[2024-10-19] MEDS ORDERED: Ventolin5 MG/1 ML INH (09:51)
== END 2024-10-18 17:46 | disposition home or self-care (01) ==
LOC: ER 14:11
PROVIDERS: Student in an Organized Health Care Education/Training Program
DX: J44.89 Other specified chronic obstructive pulmonary disease (principal); I11.0 Hypertensive heart disease with heart failure; I50.9 Heart failure, unspecified; R60.0 Localized edema; Z88.2 Allergy status to sulfonamides; Z88.8 Allergy status to other drugs, medicaments and biological substances; Z88.5 Allergy status to narcotic agent; Z79.84 Long term (current) use of oral hypoglycemic drugs; Z79.51 Long term (current) use of inhaled steroids; Z79.01 Long term (current) use of anticoagulants; Z79.899 Other long term (current) drug therapy; E11.9 Type 2 diabetes mellitus without complications
CPT/HCPCS: 71046; 80053; 85025; 93005; 93010; 99285-25

== ENCOUNTER 2024-10-29 00:16 | Day surgery (SDC) | payer OTHER ==
[~2024-10-29] VITALS: Wt 98.2 kg
[~2024-10-29 00:16] MED LIST changes: -ACTEMRA162 MG/0.1; +ACTEMRA162 MG/0.1 IV; +Ventolin5 MG/1 ML INH
[2024-10-29] MEDS ORDERED: Tocilizumab 800 MG in NS 60 ML IV SCH (06:00)
[2024-10-29 15:00] VITALS: BP 141/80
[2024-10-29] MEDS ORDERED: LISI5 PO (15:19)
[2024-10-29] MEDS ORDERED: CYCL10 PO (15:20)
[2024-10-29] MEDS ORDERED: K-Dur20 MEQ PO (15:20)
[2024-10-29] MEDS ORDERED: SERT50 PO (15:20)
[2024-10-29] MEDS ORDERED: TORSE20 PO (15:21)
[2024-10-29] MEDS ORDERED: [UNRECOGNIZED DRUG - OTHER] (15:22)
[2024-10-29] MEDS ORDERED: LC-655118 MG PO (15:22)
[2024-10-29] MEDS ORDERED: TIOT18 INH (15:22)
== END 2024-10-29 16:45 | disposition home or self-care (01) ==
LOC: ATC 00:16
DX: M05.79 Rheumatoid arthritis with rheumatoid factor of multiple sites without organ or systems involvement (principal); I48.91 Unspecified atrial fibrillation; E11.9 Type 2 diabetes mellitus without complications; J45.909 Unspecified asthma, uncomplicated; Z88.7 Allergy status to serum and vaccine; Z79.84 Long term (current) use of oral hypoglycemic drugs; Z79.899 Other long term (current) drug therapy
CPT/HCPCS: 96365; J3262

== ENCOUNTER 2024-11-27 04:36 | Day surgery (SDC) | payer OTHER ==
[~2024-11-27 04:36] MED LIST changes: +CYCL10 PO; +K-Dur20 MEQ PO; +LC-655118 MG PO; +LISI5 PO; +SERT50 PO; +TIOT18 INH; +TORSE20 PO; +[UNRECOGNIZED DRUG - OTHER]
[2024-11-27] MEDS ORDERED: Tocilizumab 800 MG in NS 60 ML IV SCH (06:00)
[2024-11-27 14:52] VITALS: BP 150/79
== END 2024-11-27 16:28 | disposition home or self-care (01) ==
LOC: ATC 04:36
DX: M05.79 Rheumatoid arthritis with rheumatoid factor of multiple sites without organ or systems involvement (principal); I48.91 Unspecified atrial fibrillation; F32.A Depression, unspecified; E11.9 Type 2 diabetes mellitus without complications; E78.00 Pure hypercholesterolemia, unspecified; F64.0 Transsexualism; Z79.899 Other long term (current) drug therapy; Z79.01 Long term (current) use of anticoagulants
CPT/HCPCS: 36416; 85610; 96365; J3262

== ENCOUNTER → 2025-01-07 | Outpatient (CLI) | payer OTHER ==
[~2025-01-07] MED LIST changes: +Bisoprolol Fumar5 MG PO; +EZET10 PO; +SERT100 PO; +Tambocor100 MG PO
[2025-01-09 07:55] LABS: Stool Occult Bld Immuno 1 Negative (NEGATIVE)
== END | disposition home or self-care (01) ==
LOC: LAB SHORT 16:30 → LAB 16:30
DX: Z12.11 Encounter for screening for malignant neoplasm of colon (principal)
CPT/HCPCS: G0328

== ENCOUNTER 2025-01-28 02:26 | Day surgery (SDC) | payer OTHER ==
[2025-01-28] MEDS ORDERED: Tocilizumab 800 MG in NS 60 ML IV SCH (06:00)
[2025-01-28 15:35] VITALS: BP 141/71
[2025-01-28 16:34] LABS: CHOL/HDL RATIO 5.3; Cholesterol 234 mg/dL (50-200); HDL Cholesterol 44 mg/dL (>39); LDL/HDL RATIO 3.5; Low Density Lipoprotein Chol 153 mg/dL (0-110); Triglycerides 185 mg/dL (30-160); Very Low Density Lipoprot Chol 37 mg/dL (6-32)
== END 2025-01-28 17:19 | disposition home or self-care (01) ==
LOC: ATC 02:26
PROVIDERS: Internal Medicine Rheumatology
DX: M05.79 Rheumatoid arthritis with rheumatoid factor of multiple sites without organ or systems involvement (principal); I49.1 Atrial premature depolarization; E11.9 Type 2 diabetes mellitus without complications; E78.00 Pure hypercholesterolemia, unspecified; Z79.84 Long term (current) use of oral hypoglycemic drugs; Z79.899 Other long term (current) drug therapy; Z88.5 Allergy status to narcotic agent; Z88.8 Allergy status to other drugs, medicaments and biological substances
CPT/HCPCS: 80061; 96365; J3262

== ENCOUNTER → 2025-03-18 | Outpatient (CLI) | payer OTHER ==
[~2025-03-18] MED LIST changes: +1/2 NS 250ml250 ML; +LATUDA20 M1 PO; +ZOLOFT10013 PO
== END | disposition home or self-care (01) ==
LOC: LAB SHORT 11:43 → LAB 11:43
DX: R82.90 Unspecified abnormal findings in urine (principal)
CPT/HCPCS: 87086

== ENCOUNTER 2025-04-02 06:19 | Day surgery (SDC) | payer OTHER ==
[2025-04-02 14:53] VITALS: BP 130/79
== END 2025-04-02 16:34 | disposition home or self-care (01) ==
LOC: ATC 06:19
DX: M05.79 Rheumatoid arthritis with rheumatoid factor of multiple sites without organ or systems involvement (principal); G62.9 Polyneuropathy, unspecified; I48.91 Unspecified atrial fibrillation; E11.9 Type 2 diabetes mellitus without complications; E78.00 Pure hypercholesterolemia, unspecified; J45.909 Unspecified asthma, uncomplicated; F64.0 Transsexualism; Z79.84 Long term (current) use of oral hypoglycemic drugs; Z79.899 Other long term (current) drug therapy; Z88.2 Allergy status to sulfonamides; Z88.5 Allergy status to narcotic agent; Z79.890 Hormone replacement therapy; Z51.81 Encounter for therapeutic drug level monitoring; Z79.01 Long term (current) use of anticoagulants
CPT/HCPCS: 36415; 85610; 96365; J3262

== ENCOUNTER 2025-04-05 09:10 | Emergency (ER) | payer OTHER ==
[~2025-04-05] VITALS: Ht 177.8 cm; Wt 98.0 kg
[2025-04-05 10:42] LABS: BASOPHILS ABSOLUTE AUTO 0.03 K/mm3 (0.00-0.23); BASOPHILS PERCENT AUTO 1 % (0-2); EOSINOPHILS ABSOLUTE AUTO 0.03 K/mm3 (0.00-0.68); EOSINOPHILS PERCENT AUTO 1 % (0-6); Hematocrit 45.4 % (37.0-53.0); Hemoglobin 16.1 g/dL (13.5-17.5); IMMATURE GRAN ABSOLUTE AUTO 0.01 K/mm3 (0.00-0.10); IMMATURE GRAN PERCENT AUTO 0 % (0-1); LYMPHOCYTES ABSOLUTE AUTO 0.56 K/mm3 (0.84-5.20); LYMPHOCYTES PERCENT AUTO 13 % (21-46); MONOCYTES ABSOLUTE AUTO 0.68 K/mm3 (0.16-1.47); MONOCYTES PERCENT AUTO 16 % (4-13); Mean Corpuscular HGB Conc 35.5 g/dL (31.5-36.5); Mean Corpuscular Volume 94 fL (80-100); NEUTROPHILS ABSOLUTE AUTO 2.96 K/mm3 (1.96-9.15); NEUTROPHILS PERCENT AUTO 69 % (41-73); NRBC ABSOLUTE 0.00 K/mm3 (0.00-0.02); NRBC Auto 0.0 /100 WBC (0.0-0.2); Platelet Count 179 K/mm3 (150-400); RDW Coefficient Variation 14.1 % (11.7-14.2); RDW Standard Deviation 47.9 fL (35.1-46.3)
[2025-04-05 11:35] LABS: Alanine Aminotransfer (ALT/SGP 31.0 U/L (12-78); Albumin, Blood 3.9 g/dL (3.4-5.0); Albumin/Globulin Ratio 1.3 (0.8-1.8); Anion Gap 9.0 mmol/L (3-11); Aspartate Aminotrans (AST/SGOT 39.0 U/L (12-37); Bilirubin, Total 1.8 mg/dL (0.1-1.0); Blood Urea Nitrogen 15.0 mg/dL (8-24); CO2, Blood 24.0 mmol/L (21-32); Calcium, Blood 8.9 mg/dL (8.5-10.1); Chloride, Blood 105.0 mmol/L (98-108); Creatinine, Blood 0.74 mg/dL (0.60-1.20); Globulin, Blood 2.9 g/dL (2.2-4.0); Glucose, Blood 141.0 mg/dL (70-99); Potassium, Blood 3.8 mmol/L (3.5-5.5); Sodium, Blood 134.0 mmol/L (136-145); Total Protein, Blood 6.8 g/dL (6.4-8.2)
[2025-04-05 13:21] VITALS: BP 139/90
== END 2025-04-05 13:36 | disposition home or self-care (01) ==
LOC: ER 09:10
PROVIDERS: Physician Assistant
DX: I10 Essential (primary) hypertension (principal); R53.1 Weakness; J45.909 Unspecified asthma, uncomplicated; I48.0 Paroxysmal atrial fibrillation; M06.9 Rheumatoid arthritis, unspecified; E11.9 Type 2 diabetes mellitus without complications; G47.33 Obstructive sleep apnea (adult) (pediatric); Z88.2 Allergy status to sulfonamides; Z88.8 Allergy status to other drugs, medicaments and biological substances; Z88.5 Allergy status to narcotic agent; Z79.84 Long term (current) use of oral hypoglycemic drugs; Z79.01 Long term (current) use of anticoagulants; Z79.899 Other long term (current) drug therapy; Z59.89 Other problems related to housing and economic circumstances
CPT/HCPCS: 71046; 80053; 84484; 85025; 93005; 93010; 99284-25

== ENCOUNTER 2025-04-30 01:01 | Day surgery (SDC) | payer OTHER ==
[~2025-04-30] VITALS: Wt 100.0 kg
[2025-04-30 14:10] VITALS: BP 132/83
== END 2025-04-30 15:45 | disposition home or self-care (01) ==
LOC: ATC 01:01
DX: M05.79 Rheumatoid arthritis with rheumatoid factor of multiple sites without organ or systems involvement (principal); E11.9 Type 2 diabetes mellitus without complications; E78.00 Pure hypercholesterolemia, unspecified; J45.909 Unspecified asthma, uncomplicated; I48.91 Unspecified atrial fibrillation; Z79.01 Long term (current) use of anticoagulants; Z79.84 Long term (current) use of oral hypoglycemic drugs; Z79.899 Other long term (current) drug therapy; Z88.2 Allergy status to sulfonamides; Z88.5 Allergy status to narcotic agent; Z51.81 Encounter for therapeutic drug level monitoring; I48.0 Paroxysmal atrial fibrillation
CPT/HCPCS: 36416; 85610; 96365; J3262

== ENCOUNTER 2025-05-16 09:25 | Emergency (ER) | payer OTHER ==
[~2025-05-16] VITALS: Ht 177.8 cm; Wt 99.8 kg
[2025-05-16 10:00] VITALS: BP 197/83
[2025-05-16 10:52] LABS: BASOPHILS ABSOLUTE AUTO 0.05 K/mm3 (0.00-0.23); BASOPHILS PERCENT AUTO 1 % (0-2); EOSINOPHILS ABSOLUTE AUTO 0.13 K/mm3 (0.00-0.68); EOSINOPHILS PERCENT AUTO 2 % (0-6); Hematocrit 43.2 % (37.0-53.0); Hemoglobin 15.2 g/dL (13.5-17.5); IMMATURE GRAN ABSOLUTE AUTO 0.02 K/mm3 (0.00-0.10); IMMATURE GRAN PERCENT AUTO 0 % (0-1); LYMPHOCYTES ABSOLUTE AUTO 0.81 K/mm3 (0.84-5.20); LYMPHOCYTES PERCENT AUTO 15 % (21-46); MONOCYTES ABSOLUTE AUTO 0.70 K/mm3 (0.16-1.47); MONOCYTES PERCENT AUTO 13 % (4-13); Mean Corpuscular HGB Conc 35.2 g/dL (31.5-36.5); Mean Corpuscular Volume 95 fL (80-100); NEUTROPHILS ABSOLUTE AUTO 3.61 K/mm3 (1.96-9.15); NEUTROPHILS PERCENT AUTO 68 % (41-73); NRBC ABSOLUTE 0.00 K/mm3 (0.00-0.02); NRBC Auto 0.0 /100 WBC (0.0-0.2); RDW Coefficient Variation 13.6 % (11.7-14.2); RDW Standard Deviation 47.5 fL (35.1-46.3)
[2025-05-16 10:59] LABS: Prothrombin Time Results 26.8 Sec (9.7-11.5)
[2025-05-16 11:00] LABS: Alanine Aminotransfer (ALT/SGP 67.0 U/L (12-78); Albumin, Blood 4.1 g/dL (3.4-5.0); Albumin/Globulin Ratio 1.6 (0.8-1.8); Anion Gap 8.0 mmol/L (3-11); Aspartate Aminotrans (AST/SGOT 49.0 U/L (12-37); Bilirubin, Total 1.3 mg/dL (0.1-1.0); Blood Urea Nitrogen 20.0 mg/dL (8-24); CO2, Blood 24.0 mmol/L (21-32); Calcium, Blood 9.3 mg/dL (8.5-10.1); Chloride, Blood 110.0 mmol/L (98-108); Creatinine, Blood 0.77 mg/dL (0.60-1.20); Globulin, Blood 2.5 g/dL (2.2-4.0); Glucose, Blood 108.0 mg/dL (70-99); Potassium, Blood 4.1 mmol/L (3.5-5.5); Sodium, Blood 138.0 mmol/L (136-145); Total Protein, Blood 6.6 g/dL (6.4-8.2)
[2025-05-16 11:10] LABS: Platelet Count 159 K/mm3 (150-400)
[2025-05-16] MEDS ORDERED: Percocet 5-3251 EACH PO (11:11)
== END 2025-05-16 11:22 | disposition home or self-care (01) ==
LOC: ER 09:25
PROVIDERS: Emergency Medicine
DX: R60.0 Localized edema (principal); I10 Essential (primary) hypertension; J45.909 Unspecified asthma, uncomplicated; E11.9 Type 2 diabetes mellitus without complications; G47.33 Obstructive sleep apnea (adult) (pediatric); Z87.39 Personal history of other diseases of the musculoskeletal system and connective tissue
CPT/HCPCS: 36415; 80053; 85025; 85610; 85730; 93971; 99283-25

== ENCOUNTER → 2025-06-16 | Outpatient (CLI) | payer OTHER | LOC: LAB 18:58 → LAB SHORT 18:58 | DX: S81.802D Unspecified open wound, left lower leg, subsequent encounter (principal) | CPT/HCPCS: 87070; 87075; 87205 ==

== ENCOUNTER 2025-07-12 01:57 | Day surgery (SDC) | payer OTHER ==
[~2025-07-12] VITALS: Wt 101.2 kg
[2025-07-12] MEDS ORDERED: RISPERIDONE0.25 MG PO (13:25)
[2025-07-12 13:26] VITALS: BP 135/72
== END 2025-07-12 15:00 | disposition home or self-care (01) ==
LOC: ATC 01:57
DX: M05.79 Rheumatoid arthritis with rheumatoid factor of multiple sites without organ or systems involvement (principal); E11.9 Type 2 diabetes mellitus without complications; I48.91 Unspecified atrial fibrillation; E78.00 Pure hypercholesterolemia, unspecified; Z88.5 Allergy status to narcotic agent; Z88.2 Allergy status to sulfonamides
CPT/HCPCS: 96365; J3262

== ENCOUNTER 2025-08-11 01:24 | Day surgery (SDC) | payer OTHER ==
[~2025-08-11] VITALS: Wt 106.7 kg
[~2025-08-11 01:24] MED LIST changes: +RISPERIDONE0.25 MG PO
[2025-08-11 16:07] VITALS: BP 146/73
[2025-08-11 17:04] LABS: CHOL/HDL RATIO 5.7; Cholesterol 229 mg/dL (50-200); HDL Cholesterol 40 mg/dL (>39); LDL/HDL RATIO 3.6; Low Density Lipoprotein Chol 144 mg/dL (0-110); Triglycerides 225 mg/dL (30-160); Very Low Density Lipoprot Chol 45 mg/dL (6-32)
--- NOTE | 2025-08-11 18:07 | NUR ---
Lab results from today faxed to Dr. Plata's office.
== END 2025-08-11 17:45 | disposition home or self-care (01) ==
LOC: ATC 01:24
PROVIDERS: Internal Medicine Rheumatology
DX: M05.79 Rheumatoid arthritis with rheumatoid factor of multiple sites without organ or systems involvement (principal); E11.9 Type 2 diabetes mellitus without complications; J45.909 Unspecified asthma, uncomplicated; I48.91 Unspecified atrial fibrillation; Z79.01 Long term (current) use of anticoagulants; Z79.84 Long term (current) use of oral hypoglycemic drugs; Z79.899 Other long term (current) drug therapy; Z88.5 Allergy status to narcotic agent
CPT/HCPCS: 36591; 80061; 96413; 99211; J3262

== ENCOUNTER 2025-08-19 23:51 | Emergency (ER) | payer OTHER ==
[~2025-08-19] VITALS: Ht 177.8 cm; Wt 103.0 kg
[2025-08-20 00:53] LABS: BASOPHILS ABSOLUTE AUTO 0.04 K/mm3 (0.00-0.23); BASOPHILS PERCENT AUTO 1 % (0-2); EOSINOPHILS ABSOLUTE AUTO 0.05 K/mm3 (0.00-0.68); EOSINOPHILS PERCENT AUTO 1 % (0-6); Hematocrit 43.2 % (37.0-53.0); Hemoglobin 14.9 g/dL (13.5-17.5); IMMATURE GRAN ABSOLUTE AUTO 0.01 K/mm3 (0.00-0.10); IMMATURE GRAN PERCENT AUTO 0 % (0-1); LYMPHOCYTES ABSOLUTE AUTO 0.96 K/mm3 (0.84-5.20); LYMPHOCYTES PERCENT AUTO 20 % (21-46); MONOCYTES ABSOLUTE AUTO 0.68 K/mm3 (0.16-1.47); MONOCYTES PERCENT AUTO 14 % (4-13); Mean Corpuscular HGB Conc 34.5 g/dL (31.5-36.5); Mean Corpuscular Volume 94 fL (80-100); NEUTROPHILS ABSOLUTE AUTO 3.16 K/mm3 (1.96-9.15); NEUTROPHILS PERCENT AUTO 65 % (41-73); NRBC ABSOLUTE 0.00 K/mm3 (0.00-0.02); NRBC Auto 0.0 /100 WBC (0.0-0.2); Platelet Count 176 K/mm3 (150-400); RDW Coefficient Variation 13.5 % (11.7-14.2); RDW Standard Deviation 46.2 fL (35.1-46.3)
[2025-08-20 01:11] LABS: Alanine Aminotransfer (ALT/SGP 61.0 U/L (12-78); Albumin, Blood 3.9 g/dL (3.4-5.0); Albumin/Globulin Ratio 1.4 (0.8-1.8); Anion Gap 8.0 mmol/L (3-11); Aspartate Aminotrans (AST/SGOT 28.0 U/L (12-37); Bilirubin, Total 1.4 mg/dL (0.1-1.0); Blood Urea Nitrogen 17.0 mg/dL (8-24); CO2, Blood 24.0 mmol/L (21-32); Calcium, Blood 8.6 mg/dL (8.5-10.1); Chloride, Blood 109.0 mmol/L (98-108); Creatinine, Blood 0.74 mg/dL (0.60-1.20); Globulin, Blood 2.7 g/dL (2.2-4.0); Glucose, Blood 141.0 mg/dL (70-99); Potassium, Blood 3.8 mmol/L (3.5-5.5); Sodium, Blood 137.0 mmol/L (136-145); Total Protein, Blood 6.6 g/dL (6.4-8.2)
[2025-08-20] MEDS ORDERED: IMITREX50 M1 PO (05:06)
[2025-08-20] MEDS ORDERED: Norco 5-325 Ta1 EACH PO (05:09)
[2025-08-20] MEDS ORDERED: NS 1,000 ML IV SCH (06:30)
[2025-08-20 06:59] LABS: Prothrombin Time Results 24.4 Sec (9.7-11.5)
[2025-08-20 08:00] VITALS: BP 165/91
[2025-08-20 08:02] LABS: Source, Urine Clean Catch
[2025-08-20 08:05] LABS: Bilirubin, Urine Neg (Neg); Color, Urine Yellow (P-Yellow); Glucose Qualitative, Urine Neg (Neg); Ketones, Urine Neg (Neg); Leukocyte Esterase, Urine 3+ (Neg); Protein, Urine 2+ (Neg); Specific Gravity, Urine 1.010 (1.003-1.022); Urobilinogen, Urine NORM (Normal)
[2025-08-20] MEDS ORDERED: CefTRIAXone Sodium 1,000 MG in NS 100 ML IV ONE (10:15)
[2025-08-20] MEDS ORDERED: CEPH500 PO (11:25)
== END 2025-08-20 11:45 | disposition home or self-care (01) ==
LOC: ER 23:51
PROVIDERS: Emergency Medicine; Student in an Organized Health Care Education/Training Program
DX: N39.0 Urinary tract infection, site not specified (principal); R31.9 Hematuria, unspecified; N50.1 Vascular disorders of male genital organs; F64.0 Transsexualism; Z88.2 Allergy status to sulfonamides; Z88.5 Allergy status to narcotic agent; I10 Essential (primary) hypertension; J45.909 Unspecified asthma, uncomplicated; I48.91 Unspecified atrial fibrillation; E11.9 Type 2 diabetes mellitus without complications; G47.33 Obstructive sleep apnea (adult) (pediatric); Z59.89 Other problems related to housing and economic circumstances
CPT/HCPCS: 74177; 80053; 81001; 85025; 85610; 87086; 93005; 93010; 96361; 96365-59; 99284-25; J0696; J7030; Q9967